=== PATIENT | female | born 1985 | race African-American/Black ===

== ENCOUNTER 2019-12-10 12:09 | Emergency (ER) | payer SELFPAY ==
[~2019-12-10] VITALS: Ht 157.5 cm; Wt 105.0 kg
[2019-12-10] MEDS ORDERED: IV NORMAL SALINE 1000ML BAG 1,000 ML IV ONE (12:45)
[2019-12-10] MEDS ORDERED: FAMOTIDINE 20 MG/2 ML VIAL IVP ONE (12:45)
[2019-12-10] MEDS ORDERED: ONDANSETRON PF 4 MG/2 ML VIAL. IVP ONE (12:45)
[2019-12-10 13:21] LABS: BASO % 1 % (0-3); EOS # 0.1 x10^3/uL (0.0-0.7); EOS % 2 % (0-3); HEMATOCRIT 37.6 % (36.0-47.0); HEMOGLOBIN 12.7 g/dL (12.0-15.5); LYMPH # 1.5 x10^3/uL (1.0-4.8); LYMPH % 24 % (24-48); MEAN CORPUSCULAR HEMOGLOBIN 30 pg (25-35); MEAN CORPUSCULAR HGB CONC 34 g/dL (31-37); MEAN CORPUSCULAR VOLUME 89 fL (79-100); MONO # 0.6 x10^3/uL (0.0-1.1); MONO % 9 % (0-9); NEUT # 4.1 x10^3/uL (1.8-7.7); NEUT % 65 % (31-73); PLATELET COUNT 295 x10^3/uL (140-400); RED BLOOD COUNT 4.25 x10^6/uL (3.50-5.40); RED CELL DISTRIBUTION WIDTH 14.1 % (11.5-14.5); WHITE BLOOD COUNT 6.4 x10^3/uL (4.0-11.0)
[2019-12-10 13:30] LABS: CALCIUM 8.9 mg/dL (8.5-10.1); CREATININE 0.9 mg/dL (0.6-1.0); GFR 72.1; POTASSIUM 3.7 mmol/L (3.5-5.1)
[2019-12-10 13:35] LABS: ALBUMIN 3.7 g/dL (3.4-5.0); ALBUMIN/GLOBULIN RATIO 1.1 (1.0-1.7); TOTAL BILIRUBIN 0.6 mg/dL (0.2-1.0); TOTAL PROTEIN 7.2 g/dL (6.4-8.2)
[2019-12-10 14:15] VITALS: BP 133/75
[2019-12-10 14:25] LABS: BILIRUBIN,URINE NEGATIVE (NEG); CLARITY,URINE CLEAR; COLOR,URINE YELLOW; NITRITE,URINE NEGATIVE (NEG); PH,URINE 7.5 (<5.0-8.0); PROTEIN,URINE NEGATIVE (NEG-TRACE); UROBILINOGEN,URINE 0.2 mg/dL (0.2 mg/dL)
[2019-12-10 14:32] LABS: BARBITURATES NEG (NEG); BENZODIAZEPINES NEG (NEG); CANNABINOIDS NEG (NEG); COCAINE NEG (NEG); METHADONE NEG (NEG); OPIATES NEG (NEG); PHENCYCLIDINE NEG (NEG)
[2019-12-10 14:41] LABS: AMPHETAMINE/METHAMPHETAMINE NEG (NEG)
[2019-12-10 14:52] LABS: RBC,URINE 0 /HPF (0-2); SQUAMOUS EPITHELIAL CELL,UR MOD /LPF
[2019-12-10 14:53] LABS: BACTERIA,URINE FEW /HPF (0-FEW)
--- NOTE | 2019-12-10 15:10 | RAD ---
EXAM: 2 VIEW ABDOMEN WITH ONE VIEW CHEST. HISTORY: Abdominal pain. COMPARISON: None. FINDINGS: A frontal view of the chest and supine/upright views of the abdomen are obtained. There are no confluent infiltrates. There is no pneumothorax or pleural effusion. The heart is not enlarged. There is no pneumoperitoneum. There are no distended small bowel loops or significant air-fluid levels. There is gas distally. IMPRESSION: 1. No confluent infiltrates. 2. No evidence of obstruction. Electronically signed by: Rae Goyal MD (12/10/2019 3:07 PM) [facility]
[2019-12-10] MEDS ORDERED: DICY20TA3 PO (15:23)
[2019-12-10] MEDS ORDERED: ONDA4TAB12 PO (15:23)
--- NOTE | 2019-12-10 15:24 | PHYS DOC ---
Past Medical History Past Medical History: Asthma, Diabetes-Type II, Hypothyroid Past Surgical History: Smoking Status: Never Smoker Alcohol Use: None General Adult EDM: Chief Complaint: ABDOMINAL PAIN HPI: HPI: Patient is a 34 year old female with a history of diabetes type 2, asthma, hypothyroidism, who presents the ED today complaining of 6 out of 10 left-sided abdominal pain with nausea that began 2 to 3 days ago after eating out. Patient denies any diarrhea, denies any vomiting. Describes the pain as burning sensation and intermittent. Denies anything specifically exacerbating or relieving the pain. Review of Systems: Review of Systems: Constitutional: Denies fever or chills. [] Eyes: Denies change in visual acuity. [] HENT: Denies nasal congestion or sore throat. [] Respiratory: Denies cough or shortness of breath. [] Cardiovascular: Denies chest pain or edema. [] GI: Reports left-sided abdominal pain with nausea, denies vomiting, bloody stools or diarrhea. [] : Denies dysuria. [] Musculoskeletal: Denies back pain or joint pain. [] Integument: Denies rash. [] Neurologic: Denies headache, focal weakness or sensory changes. [] Psychiatric: Denies depression or anxiety. [] Heart Score: Risk Factors: Risk Factors: DM, Current or recent (<one month) smoker, HTN, HLP, family history of CAD, obesity. Risk Scores: Score 0 - 3: 2.5% MACE over next 6 weeks - Discharge Home Score 4 - 6: 20.3% MACE over next 6 weeks - Admit for Clinical Observation Score 7 - 10: 72.7% MACE over next 6 weeks - Early Invasive Strategies Current Medications: Current Medications Medications (Trade) Dose Ordered Sig/Janett Start Time Stop Time Status Last Admin Dose Admin Famotidine (Pepcid Vial) 20 mg 1X ONCE 12/10/19 12:45 12/10/19 13:10 DC 12/10/19 13:25 20 MG Ondansetron HCl (Zofran) 4 mg 1X ONCE 12/10/19 12:45 12/10/19 13:10 DC 12/10/19 13:25 4 MG Sodium Chloride 1,000 ml @ 1,000 mls/hr 1X ONCE 12/10/19 12:45 12/10/19 13:44 DC 12/10/19 13:23 1,000 MLS/HR Allergies: Allergies: Allergies Coded Allergies Type Severity Reaction Last Updated Verified latex Allergy Unknown 12/10/19 Yes Physical Exam: PE: Constitutional: Well developed, well nourished, no acute distress, non-toxic appearance. [] HENT: Normocephalic, atraumatic, bilateral external ears normal, oropharynx moist, no oral exudates, nose normal. [] Eyes: PERRLA, EOMI, conjunctiva normal, no discharge. [] Neck: Normal range of motion, no tenderness, supple, no stridor. [] Cardiovascular:Heart rate regular rhythm, no murmur [] Lungs & Thorax: Bilateral breath sounds clear to auscultation [] Abdomen: Rounded abdomen. Bowel sounds normal, soft, no tenderness, no masses, no pulsatile masses. [] Skin: Warm, dry, no erythema, no rash. [] Back: No tenderness, no CVA tenderness. [] Extremities: No tenderness, no cyanosis, no clubbing, ROM intact, no edema. [] Neurologic: Alert and oriented X 3, normal motor function, normal sensory function, no focal deficits noted. [] Psychologic: Affect normal, judgement normal, mood normal. [] Current Patient Data: Labs: Laboratory Tests Test 12/10/19 13:10 12/10/19 14:10 12/10/19 14:22 White Blood Count 6.4 x10^3/uL (4.0-11.0) Red Blood Count 4.25 x10^6/uL (3.50-5.40) Hemoglobin 12.7 g/dL (12.0-15.5) Hematocrit 37.6 % (36.0-47.0) Mean Corpuscular Volume 89 fL (79-100) Mean Corpuscular Hemoglobin 30 pg (25-35) Mean Corpuscular Hemoglobin Concent 34 g/dL (31-37) Red Cell Distribution Width 14.1 % (11.5-14.5) Platelet Count 295 x10^3/uL (140-400) Neutrophils (%) (Auto) 65 % (31-73) Lymphocytes (%) (Auto) 24 % (24-48) Monocytes (%) (Auto) 9 % (0-9) Eosinophils (%) (Auto) 2 % (0-3) Basophils (%) (Auto) 1 % (0-3) Neutrophils # (Auto) 4.1 x10^3/uL (1.8-7.7) Lymphocytes # (Auto) 1.5 x10^3/uL (1.0-4.8) Monocytes # (Auto) 0.6 x10^3/uL (0.0-1.1) Eosinophils # (Auto) 0.1 x10^3/uL (0.0-0.7) Basophils # (Auto) 0.0 x10^3/uL (0.0-0.2) Sodium Level 140 mmol/L (136-145) Potassium Level 3.7 mmol/L (3.5-5.1) Chloride Level 105 mmol/L (98-107) Carbon Dioxide Level 28 mmol/L (21-32) Anion Gap 7 (6-14) Blood Urea Nitrogen 10 mg/dL (7-20) Creatinine 0.9 mg/dL (0.6-1.0) Estimated GFR (Cockcroft-Gault) 72.1 BUN/Creatinine Ratio 11 (6-20) Glucose Level 74 mg/dL (70-99) Calcium Level 8.9 mg/dL (8.5-10.1) Magnesium Level 2.0 mg/dL (1.8-2.4) Total Bilirubin 0.6 mg/dL (0.2-1.0) Aspartate Amino Transferase (AST) 17 U/L (15-37) Alanine Aminotransferase (ALT) 20 U/L (14-59) Alkaline Phosphatase 58 U/L (46-116) Total Protein 7.2 g/dL (6.4-8.2) Albumin 3.7 g/dL (3.4-5.0) Albumin/Globulin Ratio 1.1 (1.0-1.7) Lipase 82 U/L (73-393) Thyroid Stimulating Hormone (TSH) 2.229 uIU/mL (0.358-3.74) Ethyl Alcohol Level < 10 mg/dL (0-10) Urine Collection Type Unknown Urine Color Yellow Urine Clarity Clear Urine pH 7.5 (<5.0-8.0) Urine Specific [place] 1.010 (1.000-1.030) Urine Protein Negative mg/dL (NEG-TRACE) Urine Glucose (UA) Negative mg/dL (NEG) Urine Ketones (Stick) Negative mg/dL (NEG) Urine Blood Negative (NEG) Urine Nitrite Negative (NEG) Urine Bilirubin Negative (NEG) Urine Urobilinogen Dipstick 0.2 mg/dL (0.2 mg/dL) Urine Leukocyte Esterase Negative (NEG) Urine RBC 0 /HPF (0-2) Urine WBC 1-4 /HPF (0-4) Urine Squamous Epithelial Cells Mod /LPF Urine Bacteria Few /HPF (0-FEW) Urine Opiates Screen Neg (NEG) Urine Methadone Screen Neg (NEG) Urine Barbiturates Neg (NEG) Urine Phencyclidine Screen Neg (NEG) Urine Amphetamine/Methamphetamine Neg (NEG) Urine Benzodiazepines Screen Neg (NEG) Urine Cocaine Screen Neg (NEG) Urine Cannabinoids Screen Neg (NEG) Urine Ethyl Alcohol Neg (NEG) POC Urine HCG, Qualitative Hcg negative (Negative) Laboratory Tests 12/10/19 13:10 Laboratory Tests 12/10/19 13:10 Vital Signs: Vital Signs Date Time Temp Pulse Resp B/P (MAP) Pulse Ox O2 Delivery O2 Flow Rate FiO2 12/10/19 12:34 94 154/81 (105) 12/10/19 12:15 98.1 20 98 Room Air 98.1 EKG: EKG: [] Radiology/Procedures: Radiology/Procedures: []PROCEDURE: ABDOMEN SUPINE & UPRIGHT EXAM: 2 VIEW ABDOMEN WITH ONE VIEW CHEST. HISTORY: Abdominal pain. COMPARISON: None. FINDINGS: A frontal view of the chest and supine/upright views of the abdomen are obtained. There are no confluent infiltrates. There is no pneumothorax or pleural effusion. The heart is not enlarged. There is no pneumoperitoneum. There are no distended small bowel loops or significant air-fluid levels. There is gas distally. IMPRESSION: 1. No confluent infiltrates. 2. No evidence of obstruction. Electronically signed by: Rae Goyal MD (12/10/2019 3:07 PM) [facility] DICTATED and SIGNED BY: RAFFY GOYAL MD DATE: 12/10/19 1147 Course & Med Decision Making: Course & Med Decision Making Pertinent Labs and Imaging studies reviewed. (See chart for details) This is a 34-year-old female patient presenting to the ED today with left-sided abdominal pain with nausea that began 2 to 3 days ago after eating out. Negative urine hCG, urine analysis negative for infection, CBC, CMP, lipase with no acute findings. Abd supine and upright xrays are negative. Symptoms controlled in the ED. Patient was discharged to home with dicyclomine and Zofran. Follow-up with PCP in 1 to 2 weeks Elis Disclaimer: Elis Disclaimer: This electronic medical record was generated, in whole or in part, using a voice recognition dictation system. Departure Departure Impression: Primary Impression: Abdominal pain Qualified Codes: R10.32 - Left lower quadrant pain Additional Impression: Nausea Disposition: HOME, SELF-CARE Condition: STABLE Referrals: UNKNOWN PCP NAME (PCP) MICKY MCKEON MD Follow-up in 1 week Patient Instructions: Abdominal Pain, Nausea, Adult Additional Instructions: You were seen for abdominal pain, your work-up in the emergency room is negative for any acute findings. Push fluids, maintain good hand hygiene, follow-up with your doctor in the next 1 week. Scripts Dicyclomine Hcl (DICYCLOMINE HCL) 20 Mg Tablet 1 TAB PO TID, #21 TAB 1 Refill Prov: AUDRA ENGLAND APRN 12/10/19 Ondansetron (ONDANSETRON ODT) 4 Mg Tab.rapdis 1 TAB PO PRN Q6-8HRS, #16 TAB Prov: AUDRA ENGLAND APRN 12/10/19 Justicifation of Admission Dx: Justifications for Admission: Justification of Admission Dx: N/A AUDRA ENGLAND APRN Dec 10, 2019 15:24
== END 2019-12-10 15:40 | disposition home or self-care (01) ==
LOC: ER 12:09
DX: R10.32 Left lower quadrant pain (principal); R11.0 Nausea; J45.909 Unspecified asthma, uncomplicated; E11.9 Type 2 diabetes mellitus without complications; E03.9 Hypothyroidism, unspecified; Z98.890 Other specified postprocedural states; Z91.040 Latex allergy status
CPT/HCPCS: 36415; 74021; 80053; 80307; 81001; 81025; 83690; 83735; 84443; 85025; 96361; 96374; 96375; 99285; G0480; J2405; J3490; J7030

== ENCOUNTER → 2020-04-02 | Outpatient (CLI) | payer OTHER ==
[~2020-04-02] MED LIST: DICY20TA3 PO; ONDA4TAB12 PO
[2020-04-02 16:06] LABS: HEMATOCRIT 35.9 % (36.0-47.0); HEMOGLOBIN 12.4 g/dL (12.0-15.5); MEAN CORPUSCULAR HEMOGLOBIN 31 pg (25-35); MEAN CORPUSCULAR HGB CONC 35 g/dL (31-37); MEAN CORPUSCULAR VOLUME 89 fL (79-100); PLATELET COUNT 272 x10^3/uL (140-400); RED BLOOD COUNT 4.02 x10^6/uL (3.50-5.40); RED CELL DISTRIBUTION WIDTH 14.1 % (11.5-14.5); WHITE BLOOD COUNT 10.5 x10^3/uL (4.0-11.0)
[2020-04-02 16:31] LABS: ALBUMIN 3.5 g/dL (3.4-5.0); ALBUMIN/GLOBULIN RATIO 1.2 (1.0-1.7); CREATININE 0.6 mg/dL (0.6-1.0); GFR 139.3; POTASSIUM 3.6 mmol/L (3.5-5.1); TOTAL BILIRUBIN 0.5 mg/dL (0.2-1.0); TOTAL PROTEIN 6.4 g/dL (6.4-8.2); URIC ACID 2.6 mg/dL (2.6-6.0)
[2020-04-04 04:09] LABS: HEMOGLOBIN A1C 6.2 % (4.8-5.6)
== END ==
LOC: LAB 14:49
PROVIDERS: ATTEND Obstetrics & Gynecology
DX: Z34.91 Encounter for supervision of normal pregnancy, unspecified, first trimester (principal)
CPT/HCPCS: 80053; 81220; 83036; 83615; 84439; 84443; 84550; 85027; 85660; 86592; 86703; 86762; 86787; 86803; 86850; 86900; 86901; 87340

== ENCOUNTER 2020-04-06 20:26 | Emergency (ER) | payer OTHER ==
[~2020-04-06] VITALS: Ht 157.5 cm; Wt 105.0 kg
[2020-04-06 20:54] LABS: BILIRUBIN,URINE NEGATIVE (NEG); CLARITY,URINE CLEAR; COLOR,URINE YELLOW; NITRITE,URINE NEGATIVE (NEG); PH,URINE 6.5 (<5.0-8.0); PROTEIN,URINE NEGATIVE (NEG-TRACE); UROBILINOGEN,URINE 0.2 mg/dL (0.2 mg/dL)
[2020-04-06 20:55] VITALS: BP 163/70
[2020-04-06 20:59] LABS: BACTERIA,URINE MANY /HPF (0-FEW); RBC,URINE 0 /HPF (0-2); WBC,URINE OCC /HPF (0-4)
[2020-04-06] MEDS ORDERED: ESOM20CA PO (21:41)
--- NOTE | 2020-04-06 21:42 | ED.ADGEN ---
Past Medical History Past Medical History: Asthma, Diabetes-Type II, Hypothyroid Past Surgical History: Smoking Status: Never Smoker Alcohol Use: None General Adult EDM: Chief Complaint: ABDOMINAL PAIN IN HPI: HPI: Patient is a 34-year-old G3, P2 at 7 weeks gestation who presents to the emergency room complaining of mid abdominal burning. She denies any kind of vaginal bleeding at this time. She has not had any kind of trauma. She denies any nausea, vomiting, diarrhea, constipation. She has not had any urinary symptoms. Of note she does state that she drank a Monster and 3 cups of coffee today. Review of Systems: Review of Systems: Complete ROS is negative unless otherwise documented in HPI Allergies: Allergies: Allergies Coded Allergies Type Severity Reaction Last Updated Verified latex Allergy Unknown 12/10/19 Yes Physical Exam: PE: General: Awake, alert, NAD. Well Nourished, well hydrated. Cooperative HEENT: Atraumatic, EOMI, PERRL, airway patent, moist oral mucosa Neck: Supple, trachea midline Respiratory: CTA bilaterally, normal effort, no wheezing/crackles CV: RRR, no murmur, cap refill <2 GI: Soft, nondistended, nontender, no masses MSK: No obvious deformities Skin: Warm, dry, intact Neuro: A&O x3, speech NL, sensory and motor grossly intact, no focal deficits Psych: Normal affect, normal mood, not suicidal or homicidal Current Patient Data: Labs: Laboratory Tests Test 04/06/20 20:30 04/06/20 20:48 Urine Collection Type Unknown Urine Color Yellow Urine Clarity Clear Urine pH 6.5 (<5.0-8.0) Urine Specific [place] <=1.005 (1.000-1.030) Urine Protein Negative mg/dL (NEG-TRACE) Urine Glucose (UA) 100 mg/dL (NEG) Urine Ketones (Stick) Negative mg/dL (NEG) Urine Blood Negative (NEG) Urine Nitrite Negative (NEG) Urine Bilirubin Negative (NEG) Urine Urobilinogen Dipstick 0.2 mg/dL (0.2 mg/dL) Urine Leukocyte Esterase Negative (NEG) Urine RBC 0 /HPF (0-2) Urine WBC Occ /HPF (0-4) Urine Squamous Epithelial Cells Many /LPF Urine Bacteria Many /HPF (0-FEW) POC Urine HCG, Qualitative Hcg positive (Negative) Vital Signs: Vital Signs Date Time Temp Pulse Resp B/P (MAP) Pulse Ox O2 Delivery O2 Flow Rate FiO2 04/06/20 20:55 99.0 91 18 163/70 (101) 96 Room Air 99.0 EKG: EKG: [] Heart Score: Risk Factors: Risk Factors: DM, Current or recent (<one month) smoker, HTN, HLP, family history of CAD, obesity. Risk Scores: Score 0 - 3: 2.5% MACE over next 6 weeks - Discharge Home Score 4 - 6: 20.3% MACE over next 6 weeks - Admit for Clinical Observation Score 7 - 10: 72.7% MACE over next 6 weeks - Early Invasive Strategies Radiology/Procedures: Radiology/Procedures: [] Course & Med Decision Making: Course & Med Decision Making Pertinent Labs and Imaging studies reviewed. (See chart for details) Patient is a 34-year-old female presents to the emergency room complaining of abdominal pain during . Ultrasound is normal. UA is negative. Patient does not appear to have any infectious processes at this time. Pain is likely secondary to reflux. We will start her on Nexium. I discussed with her that she should increase her fluid intake, decrease her caffeine, and take her vitamins. She will follow-up with her TYPESETTING MACHINE OPERATOR/TENDER. Patient's test results and vitals while in the ED were fully reviewed and discussed with the patient. Patient is stable and at this time does not need admission to the hospital. We have discussed strict return precautions and the importance of following up with their Primary Care Physician. Patient stated understanding and was given an opportunity to ask any questions. Patient is in agreement with plan. Elis Disclaimer: Elis Disclaimer: This electronic medical record was generated, in whole or in part, using a voice recognition dictation system. Departure Departure Impression: Primary Impression: Abdominal pain affecting Additional Impression: GERD (gastroesophageal reflux disease) Disposition: 01 DC HOME SELF CARE/HOMELESS Condition: STABLE Referrals: DEONNA STOREY DO (PCP) Patient Instructions: ABCs of Additional Instructions: Thank you for using [facility]. You were seen here today for belly pain while . At this time your baby appears healthy. It is very important to take your vitamins, avoid caffeine, and drink lots of water. We will be starting you on medicine for the acid in your belly. Please return if you get bleeding or severe pain. Scripts Esomeprazole Magnesium (NEXIUM CAPSULE) 20 Mg Capsule.dr 1 CAP PO DAILY, #30 CAP 0 Refills Prov: ANDREIA ACE MD 04/06/20 Problem Qualifiers ANDREIA ACE MD Apr 06, 2020 21:42
--- NOTE | 2020-04-06 22:18 | RAD ---
Examination: Obstetric ultrasound less than 14 weeks HISTORY: History of lower abdominal pain, COMPARISON: None available FINDINGS: The uterus measures 10.4 x 7.2 x 6.2 cm. Single living intrauterine identified with h eart rate of 163 bpm. Yolk sac is identified. The crown-rump length measures 1.7 cm corresponding to 8 weeks and 2 days. Estimated date of delivery by this ultrasound is 11/14/2020. The right ovary measures 2.4 x 1.8 x 1.9 cm. The left ovary is not clearly evident. IMPRESSION: 1. Single living intrauterine with heart rate of 163 bpm Electronically signed by: Feliciano Perez MD (04/06/2020 10:06 PM) [id number]
== END 2020-04-06 22:06 | disposition home or self-care (01) ==
LOC: ER 20:26
DX: O99.611 Diseases of the digestive system complicating pregnancy, first trimester (principal); K21.9 Gastro-esophageal reflux disease without esophagitis; O99.511 Diseases of the respiratory system complicating pregnancy, first trimester; J45.909 Unspecified asthma, uncomplicated; O99.281 Endocrine, nutritional and metabolic diseases complicating pregnancy, first trimester; E03.9 Hypothyroidism, unspecified; O24.911 Unspecified diabetes mellitus in pregnancy, first trimester; Z3A.01 Less than 8 weeks gestation of pregnancy; Z91.040 Latex allergy status
CPT/HCPCS: 76801; 81001; 81025; 99284-25

== ENCOUNTER 2020-04-11 12:02 | Emergency (ER) | payer OTHER ==
[~2020-04-11] VITALS: Ht 157.5 cm; Wt 102.2 kg
[~2020-04-11 12:02] MED LIST changes: +ESOM20CA PO
[2020-04-11 12:28] LABS: BILIRUBIN,URINE NEGATIVE (NEG); COLOR,URINE AMBER; NITRITE,URINE NEGATIVE (NEG); PROTEIN,URINE 30 mg/dL (NEG-TRACE)
[2020-04-11 12:39] LABS: CLARITY,URINE HAZY
[2020-04-11 12:58] LABS: BACTERIA,URINE MANY /HPF (0-FEW); RBC,URINE OCC /HPF (0-2)
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
[2020-04-11] MEDS ORDERED: cefTRIAXone IM 250 MG VIAL IM ONE (13:15)
[2020-04-11] MEDS ORDERED: AZITHROMYCIN 250 MG TABLET. PO ONE (13:15)
[2020-04-11] MEDS ORDERED: ONDANSETRON ODT 4 MG TAB.RAPDIS. PO ONE (13:15)
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
[2020-04-11 14:17] LABS: BASO # 0.1 x10^3/uL (0.0-0.2); BASO % 1 % (0-3); EOS # 0.1 x10^3/uL (0.0-0.7); EOS % 1 % (0-3); HEMATOCRIT 37.2 % (36.0-47.0); HEMOGLOBIN 12.7 g/dL (12.0-15.5); LYMPH # 1.9 x10^3/uL (1.0-4.8); LYMPH % 18 % (24-48); MEAN CORPUSCULAR HEMOGLOBIN 31 pg (25-35); MEAN CORPUSCULAR HGB CONC 34 g/dL (31-37); MEAN CORPUSCULAR VOLUME 90 fL (79-100); MONO # 0.9 x10^3/uL (0.0-1.1); MONO % 8 % (0-9); NEUT # 7.6 x10^3/uL (1.8-7.7); NEUT % 72 % (31-73); PLATELET COUNT 308 x10^3/uL (140-400); RED BLOOD COUNT 4.11 x10^6/uL (3.50-5.40); RED CELL DISTRIBUTION WIDTH 13.9 % (11.5-14.5); WHITE BLOOD COUNT 10.5 x10^3/uL (4.0-11.0)
[2020-04-11 14:42] LABS: CALCIUM 8.8 mg/dL (8.5-10.1); CREATININE 0.7 mg/dL (0.6-1.0); GFR 116.6; POTASSIUM 3.5 mmol/L (3.5-5.1)
[2020-04-11 14:49] LABS: ALBUMIN 3.4 g/dL (3.4-5.0); TOTAL BILIRUBIN 0.6 mg/dL (0.2-1.0); TOTAL PROTEIN 6.9 g/dL (6.4-8.2)
--- NOTE | 2020-04-11 15:29 | RAD ---
OB ultrasound less than 14 weeks 04/11/2020 CLINICAL HISTORY: First trimester . Fluid leakage. TECHNIQUE: Using the distended urinary bladder as a sonographic window, a real-time ultrasound examin ation of the pelvis was performed. Multiple images were obtained. FINDINGS: Comparison study is dated 04/06/2020. A gestational sac is seen within the endometrial canal within the body of the uterus. Within this ges tational sac an embryonic pole is seen. The CRL of the embryonic pole measures 2.19 cm . This corresp onds to an estimated gestational age by ultrasound of 8 weeks 6 days plus or minus a standard deviati on of 5 days. Embryonic cardiac activity is seen with a heart rate of 160 bpm. The estimated date of delivery by ultrasound on today's study is 11/15/2020. Since the previous examination there has been appropriate interval growth. The placenta is not yet developed. The amniotic fluid within the gestati onal sac is within normal limits. No abnormality of the uterus is seen. The right ovary is not visualized due to overlying bowel gas. The left ovary is normal in size and ec hogenicity. It measures 4.0 x 1.9 x 1.8 cm in size no adnexal mass is seen. No free fluid is noted. IMPRESSION: Single living IUP with an estimated gestational age by ultrasound of 8 weeks 6 days plus or minus a standard deviation of 5 days. Since the previous examination there has been appropriate in terval growth. The amniotic fluid within the gestational sac is within normal limits. Electronically signed by: Kendell Lin MD (04/11/2020 3:27 PM) [id number]
[2020-04-11] MEDS ORDERED: CEPH500C PO (15:50)
[2020-04-11 16:29] VITALS: BP 133/60
[2020-04-12 19:12] LABS: GC PROBE Negative (Negative)
== END 2020-04-11 17:20 | disposition home or self-care (01) ==
LOC: ER 12:02
DX: O26.891 Other specified pregnancy related conditions, first trimester (principal); R10.30 Lower abdominal pain, unspecified; O99.511 Diseases of the respiratory system complicating pregnancy, first trimester; J45.909 Unspecified asthma, uncomplicated; O99.281 Endocrine, nutritional and metabolic diseases complicating pregnancy, first trimester; O24.911 Unspecified diabetes mellitus in pregnancy, first trimester; O99.341 Other mental disorders complicating pregnancy, first trimester; F32.9 Major depressive disorder, single episode, unspecified; Z3A.08 8 weeks gestation of pregnancy; O99.331 Smoking (tobacco) complicating pregnancy, first trimester; Z91.040 Latex allergy status
CPT/HCPCS: 76801; 80053; 81001; 81025; 84702; 85025; 87086; 87491; 87591; 96372; 99285; J0696; Q0111

== ENCOUNTER 2020-04-15 16:39 | Emergency (ER) | payer OTHER ==
[~2020-04-15] VITALS: Ht 157.5 cm; Wt 102.0 kg
[~2020-04-15 16:39] MED LIST changes: +CEPH500C PO
[2020-04-15 17:39] LABS: BILIRUBIN,URINE NEGATIVE (NEG); CLARITY,URINE CLEAR; COLOR,URINE YELLOW; NITRITE,URINE NEGATIVE (NEG); PH,URINE 6.5 (<5.0-8.0); PROTEIN,URINE NEGATIVE (NEG-TRACE); UROBILINOGEN,URINE 0.2 mg/dL (0.2 mg/dL)
[2020-04-15 17:52] LABS: BACTERIA,URINE FEW /HPF (0-FEW); RBC,URINE 0 /HPF (0-2)
[2020-04-15] MEDS ORDERED: hydrOXYzine 25 MG TABLET PO PRN (18:45)
[2020-04-15] MEDS ORDERED: LIDO:MAALOX 1:1 20 ML SINGLE DOSE. SWSW ONE (18:45)
--- NOTE | 2020-04-15 18:51 | PHYS DOC ---
Past Medical History Past Medical History: Anxiety, Asthma, Depression, Diabetes-Type II, Hypo thyroid, Other Additional Past Medical Histor: "SELF HARM/CUTS SELF-YEARS AGO" Past Surgical History: Smoking Status: Current Every Day Smoker Alcohol Use: None General Adult EDM: Chief Complaint: ABDOMINAL PAIN IN HPI: HPI: 34 yo @ approximately 9wk3 days (based on US 4 days ago), PMH hypothyroidism, type 2 diabetes, asthma, anxiety and depression, presents to the ED with complaints of sharp nonradiating upper abdominal pain and suprapubic pain has been present for the past 4 days, was seen in the ED 04/14 and was prescribed Keflex for UTI, chlamydia and gonorrhea were negative. Patient states "I do not think the antibiotics are working." Patient also reports she thinks the pain is related to her anxiety because it started when she was arguing with her boyfriend. Patient states she lives with her boyfriend's parents lives with them for the past 5 years-with her going over work in this current . Patient states " I don't want to go back home." PSH -[id number] why she had a or if she has ever had any complicated pregnancies. States she feels safe in her current home, no history of homicidal threats towards her or others, but does not like the stress and constant finding. Normal bowel movement yesterday brown in color. Denies any alcohol or drug use. No prior history of GERD. Denies any associated vaginal bleeding, abnormal vaginal discharge itching or odor, rash, nausea, vomiting, diarrhea, back pain, fever, chills, sore throat, cough, hematuria, dysuria, flank pain, leg swelling or blurry vision. Does report increased urinary frequency. Review of Systems: Review of Systems: Constitutional: Denies fever or chills. [] Eyes: Denies change in visual acuity. [] HENT: Denies nasal congestion or sore throat. [] Respiratory: Denies cough or shortness of breath. [] Cardiovascular: Denies chest pain or edema. [] GI: Denies nausea, vomiting, bloody stools or diarrhea. [] : Denies dysuria, hematuria or vaginal bleeding Musculoskeletal: Denies back pain or joint pain. [] Integument: Denies rash or diaphoresis Neurologic: Denies headache, nuchal rigidity, focal weakness or sensory changes. [] Endocrine: Denies polyuria or polydipsia. [] Lymphatic: Denies swollen glands. [] Psychiatric: Denies depression or anxiety. [] Heart Score: Risk Factors: Risk Factors: DM, Current or recent (<one month) smoker, HTN, HLP, family h istory of CAD, obesity. Risk Scores: Score 0 - 3: 2.5% MACE over next 6 weeks - Discharge Home Score 4 - 6: 20.3% MACE over next 6 weeks - Admit for Clinical Observation Score 7 - 10: 72.7% MACE over next 6 weeks - Early Invasive Strategies Allergies: Allergies: Allergies Coded Allergies Type Severity Reaction Last Updated Verified latex Allergy Unknown 12/10/19 Yes Physical Exam: PE: Constitutional: Well developed, well nourished, no acute distress, non-toxic appearance. HENT: Normocephalic, atraumatic, Eyes: EOMI, conjunctiva normal, no discharge. Neck: Normal range of motion, supple, Cardiovascular: S1/2 present, regular rhythm Lungs & Thorax: Speaking in full sentences, bilateral equal chest rise, no tachypnea or increased work of breathing Abdomen: soft, no tenderness with palpation, -pt points to epigastric region and suprapubic region, no McBurney's point tenderness, Rovsing no Kingsley sign, no rigidity or peritonitis Skin: Warm, dry, no erythema, no rash. [] Back: No tenderness, no CVA tenderness. [] Extremities: No tenderness, no cyanosis, no edema Neurologic: Alert and oriented X 3, normal motor function, normal sensory function, no focal deficits noted. [] Psychologic: Affect normal, judgement normal, mood normal. [] Current Patient Data: Labs: Laboratory Tests Test 04/15/20 17:30 Urine Collection Type Unknown Urine Color Yellow Urine Clarity Clear Urine pH 6.5 (<5.0-8.0) Urine Specific [place] 1.010 (1.000-1.030) Urine Protein Negative mg/dL (NEG-TRACE) Urine Glucose (UA) 250 mg/dL (NEG) Urine Ketones (Stick) Trace mg/dL (NEG) Urine Blood Negative (NEG) Urine Nitrite Negative (NEG) Urine Bilirubin Negative (NEG) Urine Urobilinogen Dipstick 0.2 mg/dL (0.2 mg/dL) Urine Leukocyte Esterase Negative (NEG) Urine RBC 0 /HPF (0-2) Urine WBC 1-4 /HPF (0-4) Urine Squamous Epithelial Cells Many /LPF Urine Bacteria Few /HPF (0-FEW) Urine Mucus Slight /LPF POC Urine HCG, Qualitative Hcg positive (Negative) EKG: EKG: [] Radiology/Procedures: Radiology/Procedures: [] Course & Med Decision Making: Course & Med Decision Making Pertinent Labs and Imaging studies reviewed. (See chart for details) Concern for abdominal pain that originated during an argument with some anxiety and increased urinary frequency, on day 5/7 of abx w/ua improving. Physical exam not consistent with surgical abdomen-suspect anxiety component, very low suspicion for torsion, toa, or heterotopic (pt reports mica has been consent for the past 4 days).. Urinalysis compared to 4 days ago, bacteria and WBC count are decreased, no hematuria, no further leukocyte Estrace- will encourage medication compliance. Chlamydia gonorrhea test are negative, patient with no abnormal vaginal discharge itching or odor. Patient reports compliance with Keflex-has taken her medication twice a day (7-day Rx). Very well- appearing, afebrile with very mild abdominal exam. Labs with no leukocytosis, anemia. CRP slightly elevated. PAT team assessed pt and provided resources, pt denies SI/HI. Will discharge home with strict ED return precautions were given for vaginal bleeding, worsening abdominal pelvic or back pain, fever or blurry vision. Encouraged urgent outpatient follow-up with PMD and [employer] in the next 3 to 5 days. Life-threatening processes were considered but are low suspicion at this time, given history, physical exam and ED workup. Pt was educated on all prescription medications and adverse effects. All patient's questions were answered and pt was stable at time of discharge. Life/limb-threatening differential includes but is not limited to, aortic dissection, aortic aneurysm, acute coronary syndrome, surgical abdomen (appendicitis, cholecystitis, ischemic bowel, strangulated hernia, etc), bowel obstruction or volvulus, bladder outlet obstruction, gastrointestinal bleeding, inflammatory bowel disease, peptic ulcer disease, ACS/CAD, sepsis, diverticular disease, ureterolithiasis, nephrolithiasis, ovarian or testicular torsion, ectopic , vaginal hemorrhage, or genitourinary infection. Life/limb- threatening differential includes but is not limited to, ectopic , septic , infection (endometritis, sti/pid, cystitis, pyelonephritis, Alexandra's gangrene or necrotizing fasciitis, abscess), ovarian torsion, ruptured hemorrhagic ovarian cyst, endometriosis, ureterolithiasis, thrombophlebitis, organ prolapse, abdominal aortic aneurysm, mesenteric ischemia, neoplasm, bowel obstruction or surgical abdomen. I spoken with the patient and her caregivers. I explained the patient's condition, diagnoses and treatment plan based on the information available to me at this time. I have answered the patient and her caregiver's questions and addressed any concerns. The patient and her caregivers have a good understan ding of patient's diagnosis, condition and treatment plan as can be expected at this point. Vital signs have been stable. Patient's condition is stable and appropriate for discharge from the emergency department. Patient will pursue further outpatient evaluation with primary care physician or other designated or consulting physician as outlined in the discharge instructions. The patient and/or caregivers are agreeable to this plan of care and follow-up instructions have been explained in detail. The patient and/or caregivers have received these instructions in written form and have expressed an understanding of the discharge instructions. The patient and/or caregivers are aware that any significant change of condition or worsening of symptoms should prompt immediate return to this or the closest emergency department or call to 911. Elis Disclaimer: Elis Disclaimer: This electronic medical record was generated, in whole or in part, using a voice recognition dictation system. Departure Departure Impression: Primary Impression: Abdominal pain Additional Impressions: Increased urinary frequency Anxiety Disposition: 01 DC HOME SELF CARE/HOMELESS Condition: STABLE Referrals: DEONNA STOREY DO (PCP) in 3-5 days Patient Instructions: Abdominal Pain During , Anxiety and Panic Attacks, - Urinary Tract Infection Additional Instructions: FOLLOW UP WITH [facility]: [facility] Address: [address] [facility], [address] [address] FOLLOW UP WITH PSYCHIATRY: Dr. Danie Lewis Psychiatry Specialist [address] [place], [place] [address] EMERGENCY DEPARTMENT GENERAL DISCHARGE INSTRUCTIONS Thank you for coming to [facility] Emergency Department (ED) [place]o [place] and trusting us with you care. We trust that you had a positive experience in our Emergency Department. If you wish to speak to the department management, you may call the Director at [phone]. YOUR FOLLOW UP INSTRUCTIONS ARE FOLLOWS: 1. Do you have a private Doctor? If you do not have a private doctor, please ask for a resource list of physicians or clinics that may be able to assist you with follow up care. 2. The Emergency Physicain has interpreted your x-rays. The X-Ray specialist will also review them. If there is a change in the findings, you will be notified in 48 hours when at all possible. 3. A lab test or culture has been done, your results will be reviewed and you will be notified if you need a change in treatment. ADDITIONAL INSTRUCTIONS AND INFORMATION: 1. Your care today has been supervised by a physician who is specially trained in emergency care. Many problems require more than one evaluation for a complete diagnosis and treatment. We recommend that you schedule your follow up appointment as recommended to ensure complete treatment of you illness or injury. If you are unable to obtain follow up care and continue to have a problem, or if your condition worsens, we recommend that you return to the ED. 2. We are not able to safely determine your condition over the phone nor are we able to give sound medical advice over the phone. For these safety reasons, if you call for medical advice we will ask you to come to the ED for further evaluation. 3. If you have any questions regarding these discharge instructions please call the ED at [phone]. SAFETY INFORMATION: In the interest of safety, wellness, and injury prevention; we encourage you to wear your sealbelt, if you smoke; quite smoking, and we encourage family to use a protective helmet for bicycling and other sporting events that present an increased risk for head injury. IF YOUR SYMPTOMS WORSEN OR NEW SYMPTOMS DEVELOP, OR YOU HAVE CONCERNS ABOUT YOUR CONDITION; OR IF YOUR CONDITION WORSENS WHILE YOU ARE WAITING FOR YOUR FOLLOW UP APPOINTMENT; EITHER CONTACT YOUR PRIMARY CARE DOCTOR, THE PHYSICIAN WHOSE NAME AND NUMBER YOU WERE GIVEN, OR RETURN TO THE ED IMMEDIATELY. IRENE WHITE DO Apr 15, 2020 18:51
[2020-04-15 19:38] LABS: BARBITURATES NEG (NEG); BENZODIAZEPINES NEG (NEG); CANNABINOIDS NEG (NEG); COCAINE NEG (NEG); METHADONE NEG (NEG); OPIATES NEG (NEG); PHENCYCLIDINE NEG (NEG)
[2020-04-15 19:45] LABS: AMPHETAMINE/METHAMPHETAMINE NEG (NEG)
[2020-04-15 20:28] LABS: BASO % 0 % (0-3); EOS # 0.1 x10^3/uL (0.0-0.7); EOS % 1 % (0-3); HEMATOCRIT 37.9 % (36.0-47.0); HEMOGLOBIN 12.6 g/dL (12.0-15.5); LYMPH # 2.3 x10^3/uL (1.0-4.8); LYMPH % 21 % (24-48); MEAN CORPUSCULAR HEMOGLOBIN 31 pg (25-35); MEAN CORPUSCULAR HGB CONC 33 g/dL (31-37); MEAN CORPUSCULAR VOLUME 92 fL (79-100); MONO # 0.8 x10^3/uL (0.0-1.1); MONO % 7 % (0-9); NEUT # 7.7 x10^3/uL (1.8-7.7); NEUT % 71 % (31-73); PLATELET COUNT 212 x10^3/uL (140-400); RED CELL DISTRIBUTION WIDTH 14.2 % (11.5-14.5); WHITE BLOOD COUNT 10.9 x10^3/uL (4.0-11.0)
[2020-04-15 21:04] LABS: CALCIUM 8.7 mg/dL (8.5-10.1); CREATININE 0.6 mg/dL (0.6-1.0); GFR 139.3; POTASSIUM 3.5 mmol/L (3.5-5.1)
[2020-04-15 21:10] LABS: ALBUMIN 3.6 g/dL (3.4-5.0); ALBUMIN/GLOBULIN RATIO 1.1 (1.0-1.7); TOTAL BILIRUBIN 0.6 mg/dL (0.2-1.0); TOTAL PROTEIN 6.8 g/dL (6.4-8.2)
[2020-04-15 21:39] VITALS: BP 122/62
== END 2020-04-15 22:54 | disposition home or self-care (01) ==
LOC: ER 16:39
DX: O26.891 Other specified pregnancy related conditions, first trimester (principal); R10.13 Epigastric pain; R35.0 Frequency of micturition; O99.341 Other mental disorders complicating pregnancy, first trimester; F41.9 Anxiety disorder, unspecified; F32.9 Major depressive disorder, single episode, unspecified; O24.911 Unspecified diabetes mellitus in pregnancy, first trimester; O99.511 Diseases of the respiratory system complicating pregnancy, first trimester; J45.909 Unspecified asthma, uncomplicated; O99.281 Endocrine, nutritional and metabolic diseases complicating pregnancy, first trimester; E03.9 Hypothyroidism, unspecified; O99.331 Smoking (tobacco) complicating pregnancy, first trimester; Z3A.09 9 weeks gestation of pregnancy; Z91.040 Latex allergy status
CPT/HCPCS: 36415; 80053; 80307; 81001; 81025; 83690; 84702; 85025; 86140; 99283

== ENCOUNTER 2020-04-27 20:12 | Emergency (ER) | payer OTHER ==
[~2020-04-27] VITALS: Ht 157.5 cm; Wt 102.3 kg
--- NOTE | 2020-04-27 20:53 | PHYS DOC ---
Past Medical History Past Medical History: Anxiety, Asthma, Depression, Diabetes-Type II, Hypo thyroid, Other Additional Past Medical Histor: "SELF HARM/CUTS SELF-YEARS AGO" Past Surgical History: , Other Additional Past Surgical Histo: trachea as child Smoking Status: Current Every Day Smoker Alcohol Use: None General Adult EDM: Chief Complaint: ABDOMINAL PAIN IN HPI: HPI: Patient is a 34 year old female who presents with began having generalized abdominal pain and burning. Patient denies any abnormal vaginal discharge or bleeding. Her OB doctors at . Patient denies urinary symptoms, discharge, vaginal bleeding, back pain, vomiting, dizziness, headache, fever. She is a history of asthma, anxiety, diabetes, hypothyroidism, trach as a child, smoker. She rates her pain a 5 out of 10. Patient has been here several times this month the last time being on April 11 the same kind of complaints. Review of Systems: Review of Systems: Constitutional: Denies fever or chills. [] Eyes: Denies change in visual acuity. [] HENT: Denies nasal congestion or sore throat. [] Respiratory: Denies cough or shortness of breath. [] Cardiovascular: Denies chest pain or edema. [] GI: + Generalized abdominal pain, denies nausea, vomiting, bloody stools or diarrhea. [] : Denies dysuria. [] Musculoskeletal: Denies back pain or joint pain. [] Integument: Denies rash. [] Neurologic: Denies headache, focal weakness or sensory changes. [] Endocrine: Denies polyuria or polydipsia. [] Lymphatic: Denies swollen glands. [] Psychiatric: Denies depression or anxiety. [] Heart Score: Risk Factors: Risk Factors: DM, Current or recent (<one month) smoker, HTN, HLP, family history of CAD, obesity. Risk Scores: Score 0 - 3: 2.5% MACE over next 6 weeks - Discharge Home Score 4 - 6: 20.3% MACE over next 6 weeks - Admit for Clinical Observation Score 7 - 10: 72.7% MACE over next 6 weeks - Early Invasive Strategies Allergies: Allergies: Allergies Coded Allergies Type Severity Reaction Last Updated Verified latex Allergy Unknown 12/10/19 Yes Physical Exam: PE: Constitutional: Well developed, well nourished, no acute distress, non-toxic appearance. [] HENT: Normocephalic, atraumatic, bilateral external ears normal, oropharynx moist, no oral exudates, nose normal. [] Eyes: PERRLA, EOMI, conjunctiva normal, no discharge. [] Neck: Normal range of motion, no tenderness, supple, no stridor. [] Cardiovascular:Heart rate regular rhythm, no murmur [] Lungs & Thorax: Bilateral breath sounds clear to auscultation [] Abdomen: Bowel sounds normal, soft, epigastric tenderness, no masses, no pulsatile masses. [] Skin: Warm, dry, no erythema, no rash. [] Back: No tenderness, no CVA tenderness. [] Extremities: No tenderness, no cyanosis, no clubbing, ROM intact, no edema. [] Neurologic: Alert and oriented X 3, normal motor function, normal sensory function, no focal deficits noted. [] Psychologic: Affect normal, judgement normal, mood normal. [] Current Patient Data: Labs: Laboratory Tests Test 04/27/20 20:35 POC Urine HCG, Qualitative Hcg positive (Negative) EKG: EKG: [] Radiology/Procedures: Radiology/Procedures: [] Impression: [facility] [address] [place] [address] IMAGING REPORT Signed PATIENT: KEELEY STERN ACCOUNT: [id number] : 1985 LOCATION: ER AGE: 34 SEX: F EXAM STATUS: REG ER ORD. PHYSICIAN: ROBB MALCOLM APRN REASON: abd pain PROCEDURE: OB < 14 WKS EXAM: First Trimester OB Ultrasound INDICATION: Reason: abd pain / Spl. Instructions: / History: TECHNIQUE: Real-time first trimester obstetrical ultrasound was performed with permanent freeze-frame documentation. COMPARISON: None. FINDINGS: GESTATIONAL SAC: Gestational sac shape and amniotic fluid volume within normal limits. POLE: Unremarkable. Yolk sac visualized. CROWN RUMP LENGTH: 4.9 cm HEART RATE: 162 bpm PLACENTA: Too early to adequately assess. MATERNAL UTERUS: Normal, measuring 11.3 x 8.9 x 8.0 cm. MATERNAL ADNEXA: Right ovary not visualized. Left ovary measures 1.9 x 2.2 x 2.6 cm. AGE/DATES: Gestational Age by LMP: 10 weeks 2 days Gestational Age by US: 11 weeks 3 days EDC by LMP: November 21, 2020 EDC by US: November 13, 2020 IMPRESSION: Normal viable first trimester OB ultrasound. Estimated gestational age of 11 weeks 3 days and EDC of November 13, 2020. Electronically signed by: Meenakshi Abrams MD (04/27/2020 9:53 PM) [facility] [place] SIGNED BY: MEENAKSHI ABRAMS MD DATE: 04/27/20 [id number] 0 Course & Med Decision Making: Course & Med Decision Making Pertinent Labs and Imaging studies reviewed. (See chart for details) See HPI. Abdomen is soft but tender at epigastric area. Skin pink warm and dry. Alert and oriented x4. Ambulatory with a steady gait. No CVA tenderness. Speaks in full complete sentences. No extremity swelling. Blood work unremarkable. Urine shows some dehydration and therefore she is given a bolus of normal saline. There does not look to be any infection. Patient to follow-up with her OB doctor soon as possible. [] Dragon Disclaimer: Dragon Disclaimer: This electronic medical record was generated, in whole or in part, using a voice recognition dictation system. Departure Departure Impression: Primary Impression: Urinary tract infection Qualified Codes: N39.0 - Urinary tract infection, site not specified Additional Impression: Abdominal pain affecting Disposition: 01 DC HOME SELF CARE/HOMELESS Condition: STABLE Referrals: DEONNA STOREY DO (PCP) Patient Instructions: - Urinary Tract Infection Additional Instructions: Follow-up with your OB doctor soon as possible. Drink plenty of fluids. Take a vitamin. Take antibiotic as prescribed and with food. Scripts Nitrofurantoin Monohyd/M-Cryst (MACROBID 100 MG CAPSULE) 100 Mg Capsule 1 CAP PO BID for 7 Days, #14 CAP 0 Refills Prov: ROBB MALCOLM [employer]ACH[employer] QUALITY INSPECTOR 04/27/20 ROBB MALCOLM [employer] QUAL[employer] INSPECTOR Apr 27, 2020 20:53
[2020-04-27 20:58] LABS: BILIRUBIN,URINE SMALL (NEG); CLARITY,URINE CLOUDY; COLOR,URINE AMBER; NITRITE,URINE NEGATIVE (NEG); PROTEIN,URINE 30 mg/dL (NEG-TRACE)
[2020-04-27] MEDS ORDERED: FAMOTIDINE 20 MG/2 ML VIAL IVP ONE (21:00)
[2020-04-27 21:04] LABS: BACTERIA,URINE MANY /HPF (0-FEW); RBC,URINE 0 /HPF (0-2)
[2020-04-27 21:05] LABS: BASO # 0.1 x10^3/uL (0.0-0.2); BASO % 1 % (0-3); EOS # 0.1 x10^3/uL (0.0-0.7); EOS % 1 % (0-3); HEMATOCRIT 35.6 % (36.0-47.0); HEMOGLOBIN 12.3 g/dL (12.0-15.5); LYMPH # 1.9 x10^3/uL (1.0-4.8); LYMPH % 18 % (24-48); MEAN CORPUSCULAR HEMOGLOBIN 31 pg (25-35); MEAN CORPUSCULAR HGB CONC 35 g/dL (31-37); MEAN CORPUSCULAR VOLUME 89 fL (79-100); MONO # 0.8 x10^3/uL (0.0-1.1); MONO % 8 % (0-9); NEUT # 7.6 x10^3/uL (1.8-7.7); NEUT % 72 % (31-73); PLATELET COUNT 322 x10^3/uL (140-400); RED CELL DISTRIBUTION WIDTH 13.8 % (11.5-14.5); WHITE BLOOD COUNT 10.5 x10^3/uL (4.0-11.0)
[2020-04-27 21:06] LABS: AMPHETAMINE/METHAMPHETAMINE NEG (NEG); BARBITURATES NEG (NEG); BENZODIAZEPINES NEG (NEG); CANNABINOIDS NEG (NEG); COCAINE NEG (NEG); METHADONE NEG (NEG); OPIATES NEG (NEG); PHENCYCLIDINE NEG (NEG)
[2020-04-27 21:15] LABS: CALCIUM 8.8 mg/dL (8.5-10.1); CREATININE 0.6 mg/dL (0.6-1.0); GFR 139.3; POTASSIUM 3.1 mmol/L (3.5-5.1)
[2020-04-27 21:21] LABS: ALBUMIN 3.5 g/dL (3.4-5.0); TOTAL BILIRUBIN 0.5 mg/dL (0.2-1.0)
[2020-04-27] MEDS ORDERED: IV NORMAL SALINE 1000ML BAG 1,000 ML IV ONE (22:00)
--- NOTE | 2020-04-27 22:05 | RAD ---
EXAM: First Trimester OB Ultrasound INDICATION: Reason: abd pain / Spl. Instructions: / History: TECHNIQUE: Real-time first trimester obstetrical ultrasound was performed with permanent freeze-frame documentation. COMPARISON: None. FINDINGS: GESTATIONAL SAC: Gestational sac shape and amniotic fluid volume within normal limits. POLE: Unremarkable. Yolk sac visualized. CROWN RUMP LENGTH: 4.9 cm HEART RATE: 162 bpm PLACENTA: Too early to adequately assess. MATERNAL UTERUS: Normal, measuring 11.3 x 8.9 x 8.0 cm. MATERNAL ADNEXA: Right ovary not visualized. Left ovary measures 1.9 x 2.2 x 2.6 cm. AGE/DATES: Gestational Age by LMP: 10 weeks 2 days Gestational Age by US: 11 weeks 3 days EDC by LMP: November 21, 2020 EDC by US: November 13, 2020 IMPRESSION: Normal viable first trimester OB ultrasound. Estimated gestational age of 11 weeks 3 days and EDC of November 13, 2020. Electronically signed by: Ruthann Abrams MD (04/27/2020 9:53 PM) [facility] [place]
[2020-04-27] MEDS ORDERED: NITR100C62 PO (22:19)
[2020-04-27 23:07] VITALS: BP 142/84
== END 2020-04-27 23:15 | disposition home or self-care (01) ==
LOC: ER 20:12
DX: O23.41 Unspecified infection of urinary tract in pregnancy, first trimester (principal); Z3A.11 11 weeks gestation of pregnancy; O99.511 Diseases of the respiratory system complicating pregnancy, first trimester; J45.909 Unspecified asthma, uncomplicated; O99.281 Endocrine, nutritional and metabolic diseases complicating pregnancy, first trimester; E03.9 Hypothyroidism, unspecified; O99.341 Other mental disorders complicating pregnancy, first trimester; F41.9 Anxiety disorder, unspecified; F32.9 Major depressive disorder, single episode, unspecified; O24.911 Unspecified diabetes mellitus in pregnancy, first trimester; O99.331 Smoking (tobacco) complicating pregnancy, first trimester; Z91.040 Latex allergy status
CPT/HCPCS: 36415; 76801; 80053; 80307; 81001; 81025; 83690; 84702; 85025; 87086; 96361; 96374; 99285; J3490; J7030

== ENCOUNTER 2020-05-27 12:12 | Emergency (ER) | payer OTHER ==
[~2020-05-27] VITALS: Ht 157.5 cm; Wt 95.0 kg
[~2020-05-27 12:12] MED LIST changes: +NITR100C62 PO
[2020-05-27 13:12] LABS: BILIRUBIN,URINE NEGATIVE (NEG); CLARITY,URINE CLEAR; COLOR,URINE YELLOW; NITRITE,URINE NEGATIVE (NEG); PH,URINE 6.5 (<5.0-8.0); PROTEIN,URINE NEGATIVE (NEG-TRACE)
--- NOTE | 2020-05-27 13:21 | PHYS DOC ---
Past Medical History Past Medical History: Anxiety, Asthma, Depression, Diabetes-Type II, Hypo thyroid, Other Additional Past Medical Histor: "SELF HARM/CUTS SELF-YEARS AGO" Past Surgical History: , Other Additional Past Surgical Histo: trachea as child Smoking Status: Current Every Day Smoker Alcohol Use: None General Adult EDM: Chief Complaint: ABDOMINAL PAIN IN HPI: HPI: Patient is a 34 year old female 3 para 2 currently 16 weeks presenting to the ED today complaining of 8 out of 10 lower abdominal cramping radiating to her lower back, symptoms began yesterday while having intercourse. Patient denies anything exacerbating or relieving her symptoms. She states she follows up with an [employer] MANAGER at unfortunately she does not know the name. She states she was seen on Wednesday last week. Review of Systems: Review of Systems: Constitutional: Denies fever or chills. [] Eyes: Denies change in visual acuity. [] HENT: Denies nasal congestion or sore throat. [] Respiratory: Denies cough or shortness of breath. [] Cardiovascular: Denies chest pain or edema. [] GI: Reports lower abdominal cramping, denies nausea, vomiting, bloody stools or diarrhea. [] : Denies dysuria. [] Musculoskeletal: Reports low back pain Integument: Denies rash. [] Neurologic: Denies headache, focal weakness or sensory changes. [] Psychiatric: Denies depression or anxiety. [] Heart Score: Risk Factors: Risk Factors: DM, Current or recent (<one month) smoker, HTN, HLP, family history of CAD, obesity. Risk Scores: Score 0 - 3: 2.5% MACE over next 6 weeks - Discharge Home Score 4 - 6: 20.3% MACE over next 6 weeks - Admit for Clinical Observation Score 7 - 10: 72.7% MACE over next 6 weeks - Early Invasive Strategies Allergies: Allergies: Allergies Coded Allergies Type Severity Reaction Last Updated Verified latex Allergy Intermediate 04/27/20 Yes Physical Exam: PE: Constitutional: Well developed, well nourished, no acute distress, non-toxic appearance. [] HENT: Normocephalic, atraumatic, bilateral external ears normal, oropharynx moist, no oral exudates, nose normal. [] Eyes: PERRLA, EOMI, conjunctiva normal, no discharge. [] Neck: Normal range of motion, no tenderness, supple, no stridor. [] Cardiovascular:Heart rate regular rhythm, no murmur [] Lungs & Thorax: Bilateral breath sounds clear to auscultation [] Abdomen: Bowel sounds normal, soft, no tenderness, no masses, no pulsatile masses. [] Pelvic exam , Pelvic appears normal, cervix is visualized, closed, no CMT, no adnexal tenderness Skin: Warm, dry, no erythema, no rash. [] Back: No tenderness, no CVA tenderness. [] Extremities: No tenderness, no cyanosis, no clubbing, ROM intact, no edema. [] Neurologic: Alert and oriented X 3, normal motor function, normal sensory function, no focal deficits noted. [] Psychologic: Affect normal, judgement normal, mood normal. [] Current Patient Data: Labs: Laboratory Tests Test 05/27/20 12:57 POC Urine HCG, Qualitative Hcg positive (Negative) Vital Signs: Vital Signs Date Time Temp Pulse Resp B/P (MAP) Pulse Ox O2 Delivery O2 Flow Rate FiO2 05/27/20 12:15 99.1 80 16 127/71 (89) 98 Room Air 99.1 EKG: EKG: [] Radiology/Procedures: Radiology/Procedures: []PROCEDURE: PREG MORE THAN OR EQ TO 14 WKS Study: US US OB >14 WEEKS Clinical Indication: Abdominal pain in . Comparison: Most recently on 04/27/2020 Technique: Multiple grayscale images, color Doppler, and M-mode images of the uterus are obtained. Findings: Single intrauterine gestation in variable presentation. The placenta is posterior in location and the lower margin approaches the internal cervical os. The amount of amniotic fluid is appropriate. Amniotic fluid index is 11.1 cm. Cervical length is 4.4 cm. Biometrical data: BPD = 3.15 cm for 15 weeks 6 days. HC = 11.45 cm for 15 weeks 4 days. AC = 10.16 cm for 16 weeks 1 days. FL = 1.93 cm for 15 weeks 5 days. CI ratio = 83.8. HC/AC ratio = 1.13. FL/HC ratio = 16.9. FL/AC ratio = 19. Overall, the estimated sonographic gestational age is 15 weeks 6 days for an estimated date of delivery of 11/12/2020. The estimated date of delivery provided by the last menstrual period is 11/21/2020. The estimated heart rate is 155 beats per minute. A complete survey was not performed. Impression: 1. Single live intrauterine gestation with estimated sonographic gestational age of 15 weeks 6 days corresponding to an estimated delivery date of 11/12/2020. Estimated delivery date by last menstrual period of11/21/2020. 2. Variable presentation. Posterior placenta with the lower margin approaching the internal cervical os. The cervix is closed measuring 4.4 cm in length. Normal amniotic fluid index. A complete survey was not performed. Follow-up at around 20 weeks is recommended per screening guidelines to fully assess the fetus. Attention on follow-up for appropriate migration of the placenta from the internal os as well. 3. No sonographic complication to explain the patient's abdominal pain. Electronically signed by: EULA DUARTE MD (05/27/2020 1:56 PM) [facility] DICTATED and SIGNED BY: EULA DUARTE MD DATE: 05/27/20 [id number] 0 Course & Med Decision Making: Course & Med Decision Making Pertinent Labs and Imaging studies reviewed. (See chart for details) This is a 34-year-old female patient 3 para 2 presenting to the ED today complaining of lower abdominal pain described as cramping, symptoms began yesterday while having intercourse. Also complaining of low back pain. CBC, CMP, UA-no acute findings OB ultrasound single live intrauterine gestation with estimated sonographic gestational age of 15 weeks 6 days corresponding to an estimated delivery date of 11/12/2020. Estimated delivery date by last menstrual period of 11/21/2020. Variable presentation. Posterior placenta with the lower margin approaching the internal cervical os. The cervix is closed measuring 4.4 cm in length. Normal amniotic fluid index. A complete survey was not performed. Follow-up at around 20 weeks is recommended per screening guidelines to fully assess the fetus. Attention on follow-up for appropriate migration of the placenta from the internal os as well. No sonographic complication to explain the patient's abdominal pain. I called patient's [employer] MANAGER at , spoke to the office, they stated patient makes frequent visits to their emergency room due to complaints. They stated patient was seen last week in the emergency room and had an ultrasound which showed placenta previa. They requested patient to follow-up with the clinic as soon as possible. Patient was instructed to maintain bedrest including no sex until seen by OBGYLynnette Gillis Disclaimer: Elis Disclaimer: This electronic medical record was generated, in whole or in part, using a voice recognition dictation system. Departure Departure Impression: Primary Impression: Abdominal pain affecting Disposition: 01 DC HOME SELF CARE/HOMELESS Condition: STABLE Referrals: DEONNA STOREY DO (PCP) follow up with your OBGYN at as soon as possible Patient Instructions: Abdominal Pain During , [id number] Additional Instructions: Please follow up with your OBGYN at [facility] as soon as possible. Please do not have sex or any strenuous activities until seen by OBGYN. Please return to the Ed if symptoms worsen. AUDRA ENGLAND APPRENTICESHIP CONSULTANT May 27, 2020 13:21
[2020-05-27 13:23] LABS: BACTERIA,URINE FEW /HPF (0-FEW); RBC,URINE 0 /HPF (0-2)
[2020-05-27 13:50] LABS: CALCIUM 8.2 mg/dL (8.5-10.1); CREATININE 0.6 mg/dL (0.6-1.0); GFR 139.3; POTASSIUM 3.5 mmol/L (3.5-5.1)
[2020-05-27 13:56] LABS: TOTAL BILIRUBIN 0.4 mg/dL (0.2-1.0); TOTAL PROTEIN 6.1 g/dL (6.4-8.2)
--- NOTE | 2020-05-27 13:58 | RAD ---
Study: US US OB >14 WEEKS Clinical Indication: Abdominal pain in . Comparison: Most recently on 04/27/2020 Technique: Multiple grayscale images, color Doppler, and M-mode images of the uterus are obtained. Findings: Single intrauterine gestation in variable presentation. The placenta is posterior in location and the lower margin approaches the internal cervical os. The amount of amniotic fluid is appropriate. Amni otic fluid index is 11.1 cm. Cervical length is 4.4 cm. Biometrical data: BPD = 3.15 cm for 15 weeks 6 days. HC = 11.45 cm for 15 weeks 4 days. AC = 10.16 cm for 16 weeks 1 days. FL = 1.93 cm for 15 weeks 5 days. CI ratio = 83.8. HC/AC ratio = 1.13. FL/HC ratio = 16.9. FL/AC ratio = 19. Overall, the estimated sonographic gestational age is 15 weeks 6 days for an estimated date of delive ry of 11/12/2020. The estimated date of delivery provided by the last menstrual period is 11/21/2020. The estimated heart rate is 155 beats per minute. A complete survey was not performed. Impression: 1. Single live intrauterine gestation with estimated sonographic gestational age of 15 weeks 6 days corresponding to an estimated delivery date of 11/12/2020. Estimated delivery date by last menstrual p eriod of11/21/2020. 2. Variable presentation. Posterior placenta with the lower margin approaching the internal ce rvical os. The cervix is closed measuring 4.4 cm in length. Normal amniotic fluid index. A complete f etal survey was not performed. Follow-up at around 20 weeks is recommended per screening guidelines t o fully assess the fetus. Attention on follow-up for appropriate migration of the placenta from the i nternal os as well. 3. No sonographic complication to explain the patient's abdominal pain. Electronically signed by: EULA DUARTE MD (05/27/2020 1:56 PM) [facility]
[2020-05-27 14:30] LABS: BASO % 0 % (0-3); EOS # 0.1 x10^3/uL (0.0-0.7); EOS % 1 % (0-3); HEMATOCRIT 34.5 % (36.0-47.0); LYMPH # 1.8 x10^3/uL (1.0-4.8); LYMPH % 20 % (24-48); MEAN CORPUSCULAR HEMOGLOBIN 31 pg (25-35); MEAN CORPUSCULAR HGB CONC 35 g/dL (31-37); MEAN CORPUSCULAR VOLUME 89 fL (79-100); MONO # 0.7 x10^3/uL (0.0-1.1); MONO % 8 % (0-9); NEUT # 6.2 x10^3/uL (1.8-7.7); NEUT % 71 % (31-73); PLATELET COUNT 283 x10^3/uL (140-400); RED BLOOD COUNT 3.89 x10^6/uL (3.50-5.40); RED CELL DISTRIBUTION WIDTH 13.9 % (11.5-14.5); WHITE BLOOD COUNT 8.9 x10^3/uL (4.0-11.0)
[2020-05-27 16:10] VITALS: BP 107/65
[2020-05-28 19:10] LABS: GC PROBE Negative (Negative)
== END 2020-05-27 16:11 | disposition home or self-care (01) ==
LOC: ER 12:12
DX: O26.892 Other specified pregnancy related conditions, second trimester (principal); R10.30 Lower abdominal pain, unspecified; F41.9 Anxiety disorder, unspecified; J45.909 Unspecified asthma, uncomplicated; F32.9 Major depressive disorder, single episode, unspecified; E11.9 Type 2 diabetes mellitus without complications; E03.9 Hypothyroidism, unspecified; F17.200 Nicotine dependence, unspecified, uncomplicated; Z98.890 Other specified postprocedural states; Z91.040 Latex allergy status; Z3A.15 15 weeks gestation of pregnancy
CPT/HCPCS: 36415; 76805; 80053; 81001; 81025; 84702; 85025; 87086; 87491; 87591; 99285; Q0111

== ENCOUNTER 2020-09-11 17:14 | Observation (INO) | payer OTHER ==
[~2020-09-11] VITALS: Ht 157.5 cm; Wt 94.3 kg
[2020-09-11] MEDS ORDERED: IV RINGERS,LACTATED 1000ML 1,000 ML IV PRN (17:45)
[2020-09-11 18:50] LABS: BILIRUBIN,URINE NEGATIVE (NEG); CLARITY,URINE CLEAR; COLOR,URINE YELLOW; NITRITE,URINE NEGATIVE (NEG); PROTEIN,URINE NEGATIVE (NEG-TRACE)
[2020-09-11 19:02] LABS: BACTERIA,URINE FEW /HPF (0-FEW); RBC,URINE 0 /HPF (0-2)
== END 2020-09-11 19:50 | disposition home or self-care (01) ==
LOC: 3 SO LND 17:14
PROVIDERS: ADMIT Obstetrics & Gynecology; ATTEND Obstetrics & Gynecology
DX: O62.9 Abnormality of forces of labor, unspecified (principal); Z3A.31 31 weeks gestation of pregnancy
CPT/HCPCS: 59025; 81001; G0378; G0379

== ENCOUNTER 2021-06-08 14:41 | Emergency (ER) | payer OTHER ==
[~2021-06-08] VITALS: Ht 157.5 cm; Wt 95.0 kg
[~2021-06-08 14:41] MED LIST changes: +DICY20TA PO; -DICY20TA3 PO
[2021-06-08 14:50] VITALS: BP 143/82
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
[2021-06-08 15:53] LABS: BARBITURATES NEG (NEG); BENZODIAZEPINES NEG (NEG); CANNABINOIDS NEG (NEG); COCAINE NEG (NEG); METHADONE NEG (NEG); OPIATES NEG (NEG); PHENCYCLIDINE NEG (NEG)
[2021-06-08 16:01] LABS: BILIRUBIN,URINE NEGATIVE (NEG); CLARITY,URINE CLEAR; COLOR,URINE YELLOW; NITRITE,URINE NEGATIVE (NEG); PH,URINE 6.5 (<5.0-8.0); PROTEIN,URINE NEGATIVE (NEG-TRACE)
[2021-06-08 16:02] LABS: BACTERIA,URINE 0 /HPF (0-FEW); RBC,URINE >40 /HPF (0-2)
[2021-06-08 16:03] LABS: BASO % 1 % (0-3); EOS # 0.1 x10^3/uL (0.0-0.7); EOS % 1 % (0-3); HEMOGLOBIN 14.1 g/dL (12.0-15.5); LYMPH # 1.9 x10^3/uL (1.0-4.8); LYMPH % 35 % (24-48); MEAN CORPUSCULAR HEMOGLOBIN 31 pg (25-35); MEAN CORPUSCULAR HGB CONC 34 g/dL (31-37); MEAN CORPUSCULAR VOLUME 93 fL (79-100); MONO # 0.5 x10^3/uL (0.0-1.1); MONO % 9 % (0-9); NEUT % 55 % (31-73); PLATELET COUNT 268 x10^3/uL (140-400); RED BLOOD COUNT 4.54 x10^6/uL (3.50-5.40); RED CELL DISTRIBUTION WIDTH 13.4 % (11.5-14.5); WHITE BLOOD COUNT 5.4 x10^3/uL (4.0-11.0)
[2021-06-08 16:11] LABS: AMPHETAMINE/METHAMPHETAMINE NEG (NEG)
[2021-06-08 16:16] LABS: CALCIUM 8.5 mg/dL (8.5-10.1); CREATININE 0.7 mg/dL (0.6-1.0); GFR 115.9; POTASSIUM 3.3 mmol/L (3.5-5.1)
[2021-06-08 16:19] LABS: INFLUENZA A PATIENT NEGATIVE (NEGATIVE); INFLUENZA B PATIENT NEGATIVE (NEGATIVE)
[2021-06-08 16:21] LABS: ALBUMIN 3.9 g/dL (3.4-5.0); ALBUMIN/GLOBULIN RATIO 1.1 (1.0-1.7); TOTAL BILIRUBIN 0.6 mg/dL (0.2-1.0); TOTAL PROTEIN 7.4 g/dL (6.4-8.2)
--- NOTE | 2021-06-08 16:40 | RAD ---
EXAMINATION: XR ABDOMEN COMP ACUTE. HISTORY: 35 years Female Reason: abdominal pain COMPARISON: None. FINDINGS: The chest radiograph demonstrate clear lungs. The heart size is normal. No effusion or pneumothorax The mediastinum and nayla appear unremarkable. No pneumoperitoneum. No dilated bowel loops to suggest obstruction. Small amounts of fecal material s een in the colon. No urinary tract stones identified. IMPRESSION: Unremarkable exam. Electronically signed by: Larry Parham MD (06/08/2021 4:37 PM) [id number]
[2021-06-08] MEDS ORDERED: IBUPROFEN 200 MG TABLET. PO ONE (16:45)
[2021-06-08] MEDS ORDERED: DEXAMETHASONE 4 MG TABLET PO ONE (16:45)
[2021-06-08] MEDS ORDERED: IBUP-1007 PO (16:48)
== END 2021-06-08 17:07 | disposition home or self-care (01) ==
LOC: ER 14:41
DX: K59.00 Constipation, unspecified (principal); Z20.822 Contact with and (suspected) exposure to COVID-19; R51.9 Headache, unspecified; R10.84 Generalized abdominal pain; G89.29 Other chronic pain; J45.909 Unspecified asthma, uncomplicated; E11.9 Type 2 diabetes mellitus without complications; E03.9 Hypothyroidism, unspecified; F17.200 Nicotine dependence, unspecified, uncomplicated; Z91.040 Latex allergy status
CPT/HCPCS: 36415; 74022; 80053; 80307; 81001; 81025; 85025; 87428; 99284

== ENCOUNTER 2021-06-11 13:26 | Emergency (ER) | payer OTHER ==
[~2021-06-11] VITALS: Ht 167.6 cm; Wt 86.3 kg
[~2021-06-11 13:26] MED LIST changes: +IBUP-1007 PO
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
--- NOTE | 2021-06-11 15:22 | NUR ---
SS was asked to meet with pt due to concerns for mental health and having child at home. SS met with pt in room and discussed. Pt reported that she lives with her boyfriend and his parents. She reported that his parents assist in caring for her child. Pt reported that she doesn't work and receives SSI/Disability. Pt reported that she stays at home with her son. Pt reported that she has services at for medication management and therapy. Pt reported feeling depressed because she does not feel that her boyfriend is "in to her anymore." She reported that she thinks he's cheating on her won't discuss there relationship. Pt's RN notified that pt already has therapy and medication management through and received SSI and Disability. No other services recommended at this time. SS discussed with case pain management nurse.
[2021-06-11 16:06] VITALS: BP 126/71
== END 2021-06-11 16:47 | disposition home or self-care (01) ==
LOC: ER 13:26
DX: F32.9 Major depressive disorder, single episode, unspecified (principal); J45.909 Unspecified asthma, uncomplicated; E11.9 Type 2 diabetes mellitus without complications; E03.9 Hypothyroidism, unspecified; F17.200 Nicotine dependence, unspecified, uncomplicated; Z91.040 Latex allergy status
CPT/HCPCS: 99283

== ENCOUNTER 2021-08-02 10:49 | Emergency (ER) | payer OTHER ==
[~2021-08-02] VITALS: Ht 157.5 cm; Wt 90.0 kg
[2021-08-02 12:13] LABS: BASO # 0.1 x10^3/uL (0.0-0.2); BASO % 1 % (0-3); EOS # 0.1 x10^3/uL (0.0-0.7); EOS % 1 % (0-3); HEMOGLOBIN 13.2 g/dL (12.0-15.5); LYMPH # 1.7 x10^3/uL (1.0-4.8); LYMPH % 26 % (24-48); MEAN CORPUSCULAR HEMOGLOBIN 32 pg (25-35); MEAN CORPUSCULAR HGB CONC 35 g/dL (31-37); MEAN CORPUSCULAR VOLUME 92 fL (79-100); MONO # 0.5 x10^3/uL (0.0-1.1); MONO % 8 % (0-9); NEUT # 4.1 x10^3/uL (1.8-7.7); NEUT % 64 % (31-73); PLATELET COUNT 285 x10^3/uL (140-400); RED BLOOD COUNT 4.15 x10^6/uL (3.50-5.40); RED CELL DISTRIBUTION WIDTH 13.7 % (11.5-14.5); WHITE BLOOD COUNT 6.5 x10^3/uL (4.0-11.0)
[2021-08-02 12:32] LABS: BACTERIA,URINE FEW /HPF (0-FEW)
[2021-08-02 12:33] LABS: CALCIUM 8.8 mg/dL (8.5-10.1); CREATININE 0.8 mg/dL (0.6-1.0); GFR 99.4; POTASSIUM 4.1 mmol/L (3.5-5.1)
[2021-08-02 12:39] LABS: ALBUMIN 3.9 g/dL (3.4-5.0); ALBUMIN/GLOBULIN RATIO 1.1 (1.0-1.7); TOTAL BILIRUBIN 0.5 mg/dL (0.2-1.0); TOTAL PROTEIN 7.3 g/dL (6.4-8.2)
--- NOTE | 2021-08-02 14:17 | RAD ---
Study: US OB <14 WKS +TV DATE: 08/02/2021 1:11 PM INDICATION: Abdominal pain in . COMPARISON: 05/27/2020 TECHNIQUE: Transvaginal ultrasonography of the pelvis was performed. Color Doppler and duplex were ut ilized as appropriate. FINDINGS: The uterus measures 7.9 x 6 x 4.3 cm. Endometrial thickness of 1.2 cm. The right ovary measures 4 x 2 .5 x 2.7 cm. The left ovary was not able to be visualized secondary to bowel gas. No intrauterine gestational sac. No free fluid along the endometrial canal. No focal myometrial abnor mality. Doppler flow is maintained to the right ovary. Complex right ovarian cyst without significant periphe ral Doppler flow and measuring 2.6 x 1.6 x 1.6 cm. Adjacent smaller right ovarian cysts. No mass or f luid collection at the left adnexa. Minimal free pelvic fluid. IMPRESSION: 1. No intrauterine gestational sac or fluid along the endometrial canal. There is a complex right ov deb cyst measuring up to 2.6 cm but not exhibiting features typical of an ectopic. The findings are indeterminant for an early viable , failed or nonvisualized ectopic. Correlation is needed with beta-HCG levels and short term follow-up such as in two weeks. 2. Minimal free fluid within the pelvis. The left ovary was not able to be visualized on account of bowel gas. Electronically signed by: EULA DUARTE MD (08/02/2021 2:15 PM) [facility]
--- NOTE | 2021-08-02 15:13 | PHYS DOC ---
Past Medical History Past Medical History: Anxiety, Asthma, Depression, Diabetes-Type II, Hypothyroid, Other Additional Past Medical Histor: "SELF HARM/CUTS SELF-YEARS AGO" Past Surgical History: No Surgical History Additional Past Surgical Histo: trachea as child Smoking Status: Current Every Day Smoker Alcohol Use: None General Adult EDM: Chief Complaint: ABDOMINAL PAIN IN HPI: HPI: 35-year-old female presents with multiple complaints which include headache and seeing flashes in both of her eyes. She is also having some generalized abdominal discomfort. She states that she is approximately 4 weeks per last menstrual cycle. Past medical history significant for diabetes. She is currently on insulin and takes it regularly. Has some nausea and vomiting but nothing out of proportion to her usual nausea in her first trimester. Denies any rectal bleeding or diarrhea. No known sick contacts. Review of Systems: Review of Systems: Constitutional: Denies fever or chills. [] Eyes: Seen with random flashing lights in both eyes, currently resolved HENT: Denies nasal congestion or sore throat. [] Respiratory: Denies cough or shortness of breath. [] Cardiovascular: Denies chest pain or edema. [] GI: Denies abdominal pain, nausea, vomiting, bloody stools or diarrhea. [] : Denies dysuria. [] Musculoskeletal: Denies back pain or joint pain. [] Integument: Denies rash. [] Neurologic: Positive for headache Endocrine: Denies polyuria or polydipsia. [] Lymphatic: Denies swollen glands. [] Psychiatric: Denies depression or anxiety. [] Heart Score: C/O Chest Pain: No Risk Factors: Risk Factors: DM, Current or recent (<one month) smoker, HTN, HLP, family history of CAD, obesity. Risk Scores: Score 0 - 3: 2.5% MACE over next 6 weeks - Discharge Home Score 4 - 6: 20.3% MACE over next 6 weeks - Admit for Clinical Observation Score 7 - 10: 72.7% MACE over next 6 weeks - Early Invasive Strategies Allergies: Allergies: Allergies Coded Allergies Type Severity Reaction Last Updated Verified latex Allergy Intermediate 04/27/20 Yes Physical Exam: PE: Constitutional: Well developed, well nourished, no acute distress, non-toxic appearance. [] HENT: Normocephalic, atraumatic, bilateral external ears normal, oropharynx moist, no oral exudates, nose normal. [] Eyes: PERRLA, EOMI, conjunctiva normal, no discharge. [] Neck: Normal range of motion, no tenderness, supple, no stridor. [] Cardiovascular:Heart rate regular rhythm, no murmur [] Lungs & Thorax: Bilateral breath sounds clear to auscultation [] Abdomen: Bowel sounds normal, soft, no tenderness, no masses, no pulsatile masses. [] Skin: Warm, dry, no erythema, no rash. [] Back: No tenderness, no CVA tenderness. [] Extremities: No tenderness, no cyanosis, no clubbing, ROM intact, no edema. [] Neurologic: Alert and oriented X 3, normal motor function, normal sensory function, no focal deficits noted. [] Psychologic: Affect normal, judgement normal, mood normal. [] Current Patient Data: Labs: Laboratory Tests Test 08/02/21 12:03 08/02/21 12:15 White Blood Count 6.5 x10^3/uL (4.0-11.0) Red Blood Count 4.15 x10^6/uL (3.50-5.40) Hemoglobin 13.2 g/dL (12.0-15.5) Hematocrit 38.0 % (36.0-47.0) Mean Corpuscular Volume 92 fL (79-100) Mean Corpuscular Hemoglobin 32 pg (25-35) Mean Corpuscular Hemoglobin Concent 35 g/dL (31-37) Red Cell Distribution Width 13.7 % (11.5-14.5) Platelet Count 285 x10^3/uL (140-400) Neutrophils (%) (Auto) 64 % (31-73) Lymphocytes (%) (Auto) 26 % (24-48) Monocytes (%) (Auto) 8 % (0-9) Eosinophils (%) (Auto) 1 % (0-3) Basophils (%) (Auto) 1 % (0-3) Neutrophils # (Auto) 4.1 x10^3/uL (1.8-7.7) Lymphocytes # (Auto) 1.7 x10^3/uL (1.0-4.8) Monocytes # (Auto) 0.5 x10^3/uL (0.0-1.1) Eosinophils # (Auto) 0.1 x10^3/uL (0.0-0.7) Basophils # (Auto) 0.1 x10^3/uL (0.0-0.2) Maternal Serum HCG Beta Subunit 342 mIU/mL (0-5) H Sodium Level 141 mmol/L (136-145) Potassium Level 4.1 mmol/L (3.5-5.1) Chloride Level 107 mmol/L (98-107) Carbon Dioxide Level 25 mmol/L (21-32) Anion Gap 9 (6-14) Blood Urea Nitrogen 12 mg/dL (7-20) Creatinine 0.8 mg/dL (0.6-1.0) Estimated GFR (Cockcroft-Gault) 99.4 BUN/Creatinine Ratio 15 (6-20) Glucose Level 180 mg/dL (70-99) H Calcium Level 8.8 mg/dL (8.5-10.1) Total Bilirubin 0.5 mg/dL (0.2-1.0) Aspartate Amino Transferase (AST) 15 U/L (15-37) Alanine Aminotransferase (ALT) 22 U/L (14-59) Alkaline Phosphatase 71 U/L (46-116) Total Protein 7.3 g/dL (6.4-8.2) Albumin 3.9 g/dL (3.4-5.0) Albumin/Globulin Ratio 1.1 (1.0-1.7) Lipase 99 U/L (73-393) Acetone Level Neg (NEG) Urine Collection Type Unknown Urine Color (Auto) Yellow Urine Turbidity Hazy Urine pH (Auto) 6.0 (<5.0-8.0) Urine Specific [place] 1.030 (1.000-1.030) Urine Protein (Auto) Negative mg/dL (Negative) Urine Glucose (Auto)(UA) >=1000 mg/dL (Negative) Urine Ketones (Auto) Trace mg/dL (Negative) Urine Blood (Auto) Negative (Negative) Urine Nitrite Negative (Negative) Urine Bilirubin (Auto) Negative (Negative) Urine Urobilinogen (Auto) Normal mg/dL (Normal) Urine Leukocyte Esterase (Auto) Negative (Negative) Urine RBC 1-2 /HPF (0-2) Urine WBC 1-4 /HPF (0-4) Urine Squamous Epithelial Cells Many /LPF Urine Bacteria Few /HPF (0-FEW) Urine Mucus Marked /LPF Laboratory Tests 08/02/21 12:03 Laboratory Tests 08/02/21 12:03 Vital Signs: Vital Signs Date Time Temp Pulse Resp B/P (MAP) Pulse Ox O2 Delivery O2 Flow Rate FiO2 08/02/21 11:02 98.0 105 20 132/60 (84) 98 98.0 EKG: EKG: [] Radiology/Procedures: Radiology/Procedures: [] Course & Med Decision Making: Course & Med Decision Making Pertinent Labs and Imaging studies reviewed. (See chart for details) Patient's labs do not indicate DKA. Her vital signs are stable. She is currently headache free. The flashes and floaters were both eyes so I doubt any PVD or retinal issue. In addition the patient has very minimal risk factors for such etiologies given her age. However on the ultrasound given that she has had abdominal pain I do not see an ectopic. The beta-hCG level is very low. She needs to have a repeat beta-hCG level done at her PCP office o or her OB office in 48 hours. She was advised that we cannot rule out an ectopic at this time. However given the low level in the tertiary complaint of abdominal pain I have a low index of suspicion at this time. Her vital signs are stable Dragon Disclaimer: Dragon Disclaimer: This electronic medical record was generated, in whole or in part, using a voice recognition dictation system. Departure Departure Impression: Primary Impression: Disposition: 01 HOME / SELF CARE / HOMELESS Condition: STABLE Referrals: UNKNOWN PCP NAME (PCP) Patient Instructions: Human Chorionic Gonadotropin (hCG) Additional Instructions: Your level is slightly elevated however the ultrasound does not show a at this time. This could be because simply you are too early along for us to see anything. However we cannot rule out a outside of the uterus. Therefore if you begin having significant belly pain or loss of consciousness or dizziness these are all signs that you need to return to the ER. In the meantime you need to follow-up with your OB doctor within 48 hours and have your hCG level rechecked. Your level today was 340. JOSH MAYFIELD MD August 02, 2021 15:13
[2021-08-02 15:16] VITALS: BP 136/74
== END 2021-08-02 15:24 | disposition home or self-care (01) ==
LOC: ER 10:49
DX: O26.891 Other specified pregnancy related conditions, first trimester (principal); R10.84 Generalized abdominal pain; R51.9 Headache, unspecified; O99.511 Diseases of the respiratory system complicating pregnancy, first trimester; J45.909 Unspecified asthma, uncomplicated; O99.281 Endocrine, nutritional and metabolic diseases complicating pregnancy, first trimester; E03.9 Hypothyroidism, unspecified; O24.911 Unspecified diabetes mellitus in pregnancy, first trimester; Z3A.01 Less than 8 weeks gestation of pregnancy
CPT/HCPCS: 36415; 76801; 76817; 80053; 81001; 82010; 83690; 84702; 85025; 99284-25

== ENCOUNTER 2021-08-06 12:24 | Emergency (ER) | payer OTHER ==
[~2021-08-06] VITALS: Ht 157.5 cm; Wt 92.2 kg
[2021-08-06 13:43] LABS: BACTERIA,URINE 0 /HPF (0-FEW); RBC,URINE 0 /HPF (0-2); WBC,URINE 0 /HPF (0-4)
[2021-08-06 14:05] VITALS: BP 133/93
--- NOTE | 2021-08-06 15:02 | PHYS DOC ---
Past Medical History Past Medical History: Anxiety, Asthma, Depression, Diabetes-Type II, Hypo thyroid, Other Additional Past Medical Histor: "SELF HARM/CUTS SELF-YEARS AGO" Past Surgical History: Additional Past Surgical Histo: TRACH Smoking Status: Current Every Day Smoker Additional Information: 0.5 PPD Alcohol Use: None General Adult EDM: Chief Complaint: ABDOMINAL PAIN HPI: HPI: Patient is a 35 year old gravid female who presents with left-sided abdominal pain that has been ongoing for a week. Patient states that she had an ultrasound last week with her education specialist which showed an intrauterine . Patient had left-sided abdominal pain at that time which was intermittent and crampy. Patient was instructed to return for her follow-up visits or present to the emergency department if she is having ongoing abdominal pain. Patient notes good bowel movements, no other issues. Pain is very mild and crampy. Patient is about 5 weeks per her report. Vitals are stable. No other complaints. Review of Systems: Review of Systems: Constitutional: Denies fever or chills. [] Eyes: Denies change in visual acuity. [] HENT: Denies nasal congestion or sore throat. [] Respiratory: Denies cough or shortness of breath. [] Cardiovascular: Denies chest pain or edema. [] GI: Positive left-sided abdominal pain, no nausea, vomiting, bloody stools or diarrhea. [] : Denies dysuria. [] Musculoskeletal: Denies back pain or joint pain. [] Integument: Denies rash. [] Neurologic: Denies headache, focal weakness or sensory changes. [] Endocrine: Denies polyuria or polydipsia. [] Lymphatic: Denies swollen glands. [] Psychiatric: Denies depression or anxiety. [] Heart Score: C/O Chest Pain: No Risk Factors: Risk Factors: DM, Current or recent (<one month) smoker, HTN, HLP, family history of CAD, obesity. Risk Scores: Score 0 - 3: 2.5% MACE over next 6 weeks - Discharge Home Score 4 - 6: 20.3% MACE over next 6 weeks - Admit for Clinical Observation Score 7 - 10: 72.7% MACE over next 6 weeks - Early Invasive Strategies Allergies: Allergies: Allergies Coded Allergies Type Severity Reaction Last Updated Verified latex Allergy Intermediate 04/27/20 Yes Physical Exam: PE: Constitutional: Well developed, well nourished, no acute distress, non-toxic appearance. [] HENT: Normocephalic, atraumatic, bilateral external ears normal, oropharynx moist, no oral exudates, nose normal. [] Eyes: PERRLA, EOMI, conjunctiva normal, no discharge. [] Neck: Normal range of motion, no tenderness, supple, no stridor. [] Cardiovascular:Heart rate regular rhythm, no murmur [] Lungs & Thorax: Bilateral breath sounds clear to auscultation [] Abdomen: Bowel sounds normal, soft, no tenderness to palpation over the area in question, no masses, no pulsatile masses. [] Skin: Warm, dry, no erythema, no rash. [] Back: No tenderness, no CVA tenderness. [] Extremities: No tenderness, no cyanosis, no clubbing, ROM intact, no edema. [] Neurologic: Alert and oriented X 3, normal motor function, normal sensory function, no focal deficits noted. [] Psychologic: Affect normal, judgement normal, mood normal. [] Current Patient Data: Labs: Laboratory Tests Test 08/06/21 12:27 08/06/21 12:39 Urine Collection Type Unknown Urine Color (Auto) Yellow Urine Turbidity Hazy Urine pH (Auto) 6.0 (<5.0-8.0) Urine Specific [place] 1.022 (1.000-1.030) Urine Protein (Auto) Negative mg/dL (Negative) Urine Glucose (Auto)(UA) >=1000 mg/dL (Negative) Urine Ketones (Auto) Negative mg/dL (Negative) Urine Blood (Auto) Negative (Negative) Urine Nitrite Negative (Negative) Urine Bilirubin (Auto) Negative (Negative) Urine Urobilinogen (Auto) Normal mg/dL (Normal) Urine Leukocyte Esterase (Auto) Negative (Negative) Urine RBC 0 /HPF (0-2) Urine WBC 0 /HPF (0-4) Urine Squamous Epithelial Cells Many /LPF Urine Bacteria 0 /HPF (0-FEW) Urine Mucus Marked /LPF POC Urine HCG, Qualitative Hcg positive (Negative) Vital Signs: Vital Signs Date Time Temp Pulse Resp B/P (MAP) Pulse Ox O2 Delivery O2 Flow Rate FiO2 08/06/21 14:05 94 19 133/93 (106) 99 Room Air 08/06/21 12:30 98.8 98.8 EKG: EKG: [] Radiology/Procedures: Radiology/Procedures: [] Impression: Left-sided abdominal cramping, likely constipation Course & Med Decision Making: Course & Med Decision Making Pertinent Labs and Imaging studies reviewed. (See chart for details) Seen and evaluated by myself, patient nontoxic-appearing, very mild left-sided abdominal pain. Patient seen and evaluated by education specialist as well, reportedly, ultrasound of the uterus showed intrauterine . No concern for tubal . Urinalysis did not show urinary tract infection. Patient recommended to follow-up outpatient with her education specialist. Patient may also use Tylenol. Patient has history of diabetes as well which is controlled per patient. At reevaluation, patient states that pain had dissipated. Reviewed lab findings with patient, patient agreed to follow-up outpatient. Patient stated that she would follow-up in the next week with her education specialist or primary care physician. Patient discharged in stable condition, all questions answered. Hemodynamically stable at the time of discharge. Elis Disclaimer: Elis Disclaimer: This electronic medical record was generated, in whole or in part, using a voice recognition dictation system. Departure Departure Impression: Primary Impression: Constipation Disposition: 01 HOME / SELF CARE / HOMELESS Condition: GOOD Referrals: UNKNOWN PCP NAME (PCP) Patient Instructions: Abdominal Pain During , [id number] Additional Instructions: Follow-up with your education specialist or primary care physician in 3 to 5 days You had no urinary tract infection today Ultrasound performed last week reportedly did not show a tubal You may return to the emergency department if you are having increasing or worsening pain You may take MiraLAX if you are experiencing constipation AMA MIRANDA MD August 06, 2021 15:02
== END 2021-08-06 14:12 | disposition home or self-care (01) ==
LOC: ER 12:24
DX: O26.891 Other specified pregnancy related conditions, first trimester (principal); K59.00 Constipation, unspecified; J45.909 Unspecified asthma, uncomplicated; E11.9 Type 2 diabetes mellitus without complications; E03.9 Hypothyroidism, unspecified; F17.200 Nicotine dependence, unspecified, uncomplicated; Z91.040 Latex allergy status; Z3A.01 Less than 8 weeks gestation of pregnancy
CPT/HCPCS: 81001; 81025; 99283

== ENCOUNTER → 2021-08-13 | Emergency (ER) | payer OTHER ==
[~2021-08-13] VITALS: Ht 157.5 cm; Wt 95.0 kg
[2021-08-13 19:46] VITALS: BP 125/80
[2021-08-13 20:13] LABS: BACTERIA,URINE MODERATE /HPF (0-FEW); RBC,URINE 0 /HPF (0-2)
--- NOTE | 2021-08-13 20:49 | PHYS DOC ---
Past Medical History Past Medical History: Anxiety, Asthma, Depression, Diabetes-Type II, Hypo thyroid, Other Additional Past Medical Histor: "SELF HARM/CUTS SELF-YEARS AGO" Past Surgical History: No Surgical History Additional Past Surgical Histo: TRACH Smoking Status: Current Every Day Smoker Alcohol Use: None General Adult EDM: Chief Complaint: ABDOMINAL PAIN IN HPI: HPI: Patient is a 35 year old female 4 para 3 currently 6 weeks presenting to the ED today complaining of mild intermittent bilateral lower abdo sparkle pain with clear white vaginal discharge, symptoms began today. Patient denies any nausea, vomiting, vaginal bleeding. She states she is planning to follow-up with her high risk ELECTRICAL LINE MECHANIC at [facility] in the next couple weeks. Review of Systems: Review of Systems: Constitutional: Denies fever or chills. [] Eyes: Denies change in visual acuity. [] HENT: Denies nasal congestion or sore throat. [] Respiratory: Denies cough or shortness of breath. [] Cardiovascular: Denies chest pain or edema. [] GI: Reports lower abdominal pain in with vaginal discharge, denies nausea, vomiting, bloody stools or diarrhea. [] : Denies dysuria. [] Musculoskeletal: Denies back pain or joint pain. [] Integument: Denies rash. [] Neurologic: Denies headache, focal weakness or sensory changes. [] ] Psychiatric: Denies depression or anxiety. [] Heart Score: C/O Chest Pain: N/A Risk Factors: Risk Factors: DM, Current or recent (<one month) smoker, HTN, HLP, family history of CAD, obesity. Risk Scores: Score 0 - 3: 2.5% MACE over next 6 weeks - Discharge Home Score 4 - 6: 20.3% MACE over next 6 weeks - Admit for Clinical Observation Score 7 - 10: 72.7% MACE over next 6 weeks - Early Invasive Strategies Allergies: Allergies: Allergies Coded Allergies Type Severity Reaction Last Updated Verified latex Allergy Intermediate 04/27/20 Yes Physical Exam: PE: Constitutional: Well developed, well nourished, no acute distress, non-toxic appearance. [] Abdomen: Bowel sounds normal, soft, no tenderness, no masses, no pulsatile mass es. [] Pelvic exam external pelvic appears normal, cervix visualized, closed, no CMT, no adnexal tenderness, Small amount of white discharge noted in the vaginal vault Skin: Warm, dry, no erythema, no rash. [] Back: No tenderness, no CVA tenderness. [] Extremities: No tenderness, no cyanosis, no clubbing, ROM intact, no edema. [] Neurologic: Alert and oriented X 3, normal motor function, normal sensory function, no focal deficits noted. [] Psychologic: Affect normal, judgement normal, mood normal. [] Current Patient Data: Labs: Laboratory Tests Test 08/13/21 19:45 08/13/21 19:51 Urine Collection Type Unknown Urine Color (Auto) Yellow Urine Turbidity Hazy Urine pH (Auto) 6.5 (<5.0-8.0) Urine Specific [place] 1.024 (1.000-1.030) Urine Protein (Auto) Negative mg/dL (Negative) Urine Glucose (Auto)(UA) 200 mg/dL (Negative) Urine Ketones (Auto) 10 mg/dL (Negative) Urine Blood (Auto) Negative (Negative) Urine Nitrite Negative (Negative) Urine Bilirubin (Auto) Negative (Negative) Urine Urobilinogen (Auto) 2 mg/dL (Normal) Urine Leukocyte Esterase (Auto) Small (Negative) Urine RBC 0 /HPF (0-2) Urine WBC 1-4 /HPF (0-4) Urine Squamous Epithelial Cells Many /LPF Urine Bacteria Moderate /HPF (0-FEW) Urine Mucus Slight /LPF POC Urine HCG, Qualitative Hcg positive (Negative) Microbiology 08/13/21 Wet Prep - Final, Complete Vital Signs: Vital Signs Date Time Temp Pulse Resp B/P (MAP) Pulse Ox O2 Delivery O2 Flow Rate FiO2 08/13/21 19:46 98.4 16 125/80 (95) 99 Room Air 98.4 EKG: EKG: [] Radiology/Procedures: Radiology/Procedures: []PROCEDURE: OB <14 WKS W/TV Exam: Ultrasound OB less than 14 weeks Indication: Pelvic pain Technique: Real-time grayscale and color Doppler images of the pelvis were obtained by the department hair stylist. Comparisons: 08/12/2021 FINDINGS: Uterus measures 9.0 x 5.5 x 5.5 cm. Within the endometrium there is a gestational sac with internal yolk sac. No pole identified. Right ovary measures 3.6 x 2.8 x 2.7 cm. Several simple appearing cysts in the right ovary, largest measuring up to 2.4 cm. Left ovary is not visualized. No free fluid identified in the pelvis. IMPRESSION: 1. Intrauterine gestational sac with yolk sac. No pole. Differential considerations include an early IUP which is favored versus failed IUP. Recommend correlation with serial hCG measurements and short-term follow-up ultrasound. 2. Stable appearing cyst within the right ovary. No evidence for torsion. Electronically signed by: Salena Foreman MD (08/13/2021 9:26 PM) [facility] DICTATED and SIGNED BY: SALENA FOREMAN MD DATE: 08/13/212121 Course & Med Decision Making: Course & Med Decision Making Pertinent Labs and Imaging studies reviewed. (See chart for details) This a 35-year-old female patient 4 para 3 currently 6 weeks presenting to the ED today with pelvic pain, vaginal discharge, symptoms began today CBC, CMP with no acute findings. Beta-hCG 10,891, UA noted for small amount of leukocyte but is grossly contaminated with squamous cells epithelium. OB ultrasound noted for intrauterine gestational sac with yolk sac. No pole. Differential considerations include an early IUP which is favored versus failed IUP. Recommend correlation with serial hCG measurements and short-term follow-up ultrasound. Stable appearing cyst within the right ovary. No evidence for torsion. Patient states she follows up with highway patrol pilot and will sent an appointment as soon as she can. Elis Disclaimer: Elis Disclaimer: This electronic medical record was generated, in whole or in part, using a voice recognition dictation system. Departure Departure Impression: Primary Impression: Abdominal pain in Qualified Codes: O26.899 - Other specified related conditions, unspecified trimester; R10.9 - Unspecified abdominal pain Disposition: HOME / SELF CARE / HOMELESS Condition: STABLE Referrals: RODGER MCMAHON (PCP) follow up with your OBGYN next week Patient Instructions: Abdominal Pain During Additional Instructions: You were evaluated in the emergency room for abdominal pain in . You are currently in the early phase of . Please follow-up with your ELECTRICAL LINE MECHANIC next week. Come back to the ED at any point symptoms worsen or you have new concerning symptoms. AUDRA [employer] PHLEB[employer] REPRESENTATIVE August 13, 2021 20:49
--- NOTE | 2021-08-13 21:29 | RAD ---
Exam: Ultrasound OB less than 14 weeks Indication: Pelvic pain Technique: Real-time grayscale and color Doppler images of the pelvis were obtained by the department environmental marketer. Comparisons: 08/12/2021 FINDINGS: Uterus measures 9.0 x 5.5 x 5.5 cm. Within the endometrium there is a gestational sac with internal y olk sac. No pole identified. Right ovary measures 3.6 x 2.8 x 2.7 cm. Several simple appearing cysts in the right ovary, largest m easuring up to 2.4 cm. Left ovary is not visualized. No free fluid identified in the pelvis. IMPRESSION: 1. Intrauterine gestational sac with yolk sac. No pole. Differential considerations include an early IUP which is favored versus failed IUP. Recommend correlation with serial hCG measurements and short-term follow-up ultrasound. 2. Stable appearing cyst within the right ovary. No evidence for torsion. Electronically signed by: Salena Curry MD (08/13/2021 9:26 PM) [facility]
[2021-08-13 21:34] LABS: BASO # 0.1 x10^3/uL (0.0-0.2); BASO % 1 % (0-3); EOS # 0.1 x10^3/uL (0.0-0.7); EOS % 1 % (0-3); HEMATOCRIT 38.4 % (36.0-47.0); HEMOGLOBIN 13.1 g/dL (12.0-15.5); LYMPH # 2.7 x10^3/uL (1.0-4.8); LYMPH % 29 % (24-48); MEAN CORPUSCULAR HEMOGLOBIN 31 pg (25-35); MEAN CORPUSCULAR HGB CONC 34 g/dL (31-37); MEAN CORPUSCULAR VOLUME 92 fL (79-100); MONO # 0.7 x10^3/uL (0.0-1.1); MONO % 8 % (0-9); NEUT # 5.7 x10^3/uL (1.8-7.7); NEUT % 61 % (31-73); PLATELET COUNT 276 x10^3/uL (140-400); RED BLOOD COUNT 4.17 x10^6/uL (3.50-5.40); RED CELL DISTRIBUTION WIDTH 13.7 % (11.5-14.5); WHITE BLOOD COUNT 9.3 x10^3/uL (4.0-11.0)
[2021-08-13 21:47] LABS: CALCIUM 8.8 mg/dL (8.5-10.1); CREATININE 0.8 mg/dL (0.6-1.0); GFR 99.4; POTASSIUM 3.6 mmol/L (3.5-5.1)
[2021-08-13 21:54] LABS: ALBUMIN/GLOBULIN RATIO 1.1 (1.0-1.7); TOTAL BILIRUBIN 0.5 mg/dL (0.2-1.0); TOTAL PROTEIN 7.5 g/dL (6.4-8.2)
[2021-08-15 19:11] LABS: GC PROBE Negative (Negative)
== END | disposition home or self-care (01) ==
LOC: ER 18:23
DX: O26.891 Other specified pregnancy related conditions, first trimester (principal); R10.31 Right lower quadrant pain; R10.32 Left lower quadrant pain; N89.8 Other specified noninflammatory disorders of vagina; O99.511 Diseases of the respiratory system complicating pregnancy, first trimester; J45.909 Unspecified asthma, uncomplicated; O24.911 Unspecified diabetes mellitus in pregnancy, first trimester; O99.281 Endocrine, nutritional and metabolic diseases complicating pregnancy, first trimester; E03.9 Hypothyroidism, unspecified; O99.331 Smoking (tobacco) complicating pregnancy, first trimester; Z3A.01 Less than 8 weeks gestation of pregnancy; Z91.040 Latex allergy status
CPT/HCPCS: 76801; 76817; 80053; 81001; 81025; 84702; 85025; 87086; 87491; 87591; 99284; Q0111